=== PATIENT | female | born 1940 | race Caucasian/White ===

== ENCOUNTER → 2016-11-07 | Outpatient (CLI) | payer MEDICARE, OTHER ==
[~2016-11-07] MED LIST: AMLO10TA PO; ASP81TEC PO; ATOR10TA66 PO; ATRV10T PO; DOCU100T7 PO; DULO60CA6 PO; HCT25T PO; LEVO500T69 PO; LISI40TA PO; LOSA100T7 PO; MULT-856 PO; NEBI5TAB8 PO; OMEG1CAP PO; OMG1KC PO; POLY17PO23 PO; PRD10T PO; ROSU10TA12 PO; UBID30CA13 PO
== END ==
LOC: CARD 08:00
PROVIDERS: ATTEND Internal Medicine Cardiovascular Disease
DX: R00.1 Bradycardia, unspecified (principal); I25.10 Atherosclerotic heart disease of native coronary artery without angina pectoris; I65.23 Occlusion and stenosis of bilateral carotid arteries; R06.00 Dyspnea, unspecified
CPT/HCPCS: 78452; 93017

== ENCOUNTER → 2016-11-07 | Outpatient (CLI) | payer MEDICARE, OTHER ==
[~2016-11-07] MED LIST changes: +REGADENOSON 0.4 MG/5 ML SYR (LEXISCAN) IV ONE
[2016-11-07] MEDS: CATHETER FLUSH 10 ML SYR IV PRN ×2 (08:17→09:42)
[2016-11-07 09:42] VITALS: BP 124/78
== END ==
LOC: CARD 08:04
PROVIDERS: ATTEND Internal Medicine Cardiovascular Disease
DX: R00.1 Bradycardia, unspecified (principal); I25.10 Atherosclerotic heart disease of native coronary artery without angina pectoris; I65.23 Occlusion and stenosis of bilateral carotid arteries; R06.00 Dyspnea, unspecified
CPT/HCPCS: 93225; 93226

== ENCOUNTER → 2017-01-07 | Outpatient (CLI) | payer MEDICARE, OTHER ==
[~2017-01-07] MED LIST changes: -REGADENOSON 0.4 MG/5 ML SYR (LEXISCAN) IV ONE
--- NOTE | 2017-01-07 17:57 | Diagnostic Imaging Report ---
EXAM: LUMBAR SPINE - 2-3 VIEWS INDICATION: LOW BACK PAIN COMPARISON: Lumbar spine radiographs 11/04/2015. FINDINGS: There are five lumbar type vertebral bodies. Allowing for differences in technique, there has been no appreciable change in the compression deformity of the L3 vertebral body resulting in approximately 40% height loss. There is mild new superior endplate compression of the L4 vertebral body resulting in only approximately 10% height loss. Minimal retrolisthesis of L3 on L4 is stable. There are advanced degenerative endplate changes throughout the lower lumbar spine. Advanced lower lumbar facet arthropathy. Coarse arterial calcifications including abdominal aortic aneurysm measuring up to 4.8 cm. IMPRESSION: 1. New superior endplate compression deformity of L2 resulting in approximately 10% height loss. 2. Stable spondylotic changes and compression deformity of the L3 vertebral body. 3. Arterial calcifications including an abdominal aortic aneurysm measuring up to 4.8 cm. Dictated by: Dictated on workstation # [id number]
== END ==
LOC: RAD 16:52
DX: M48.56XA Collapsed vertebra, not elsewhere classified, lumbar region, initial encounter for fracture (principal); I71.4 Abdominal aortic aneurysm, without rupture; M47.816 Spondylosis without myelopathy or radiculopathy, lumbar region
CPT/HCPCS: 72100

== ENCOUNTER 2017-09-08 07:54 | Emergency (ER) | payer MEDICARE, OTHER ==
[~2017-09-08] VITALS: Ht 167.6 cm; Wt 98.4 kg
--- OUTSIDE RECORDS SUMMARY | 2017-09-08 08:01 | XMS REPORT | Continuity of Care Document ---
Author Author [facility] Organization [facility] Address Unknown Phone Unavailable Allergies Active Description Code Type Severity Reaction Onset Reported/Identified Relationship to Patient Clinical Status Yes Penicillins [id number] Drug Allergy Unknown N/A 11/03/2010 Medications There is no data. Problems Date Dx Coded Attending Type Code Diagnosis Diagnosed By 09/01/2012 Ot 724.2 LUMBAGO 09/01/2012 Ot V57.1 PHYSICAL THERAPY NEC 10/15/2012 Ot 724.2 LUMBAGO 10/15/2012 Ot V57.1 PHYSICAL THERAPY NEC 11/23/2014 Ot 786.50 11/25/2014 PAULIE TALAMANTES MD Ot 272.4 11/25/2014 PAULIE TALAMANTES MD Ot 401.9 11/25/2014 PAULIE TALAMANTES MD Ot 414.9 11/25/2014 PAULIE TALAMANTES MD Ot 433.10 11/26/2014 PAULIE TALAMANTES MD Ot 272.4 11/26/2014 PAULIE TALAMANTES MD Ot 401.9 11/26/2014 PAULIE TALAMANTES MD Ot 414.9 11/26/2014 PAULIE TALAMANTES MD Ot 433.10 12/01/2014 PAULIE TALAMANTES MD Ot 272.4 12/01/2014 PAULIE TALAMANTES MD Ot 401.9 12/01/2014 PAULIE TALAMANTES MD Ot 414.9 12/01/2014 PAULIE TALAMANTES MD Ot 433.10 12/01/2014 PAULIE TALAMANTES MD Ot 272.4 HYPERLIPIDEMIA NEC/NOS 12/01/2014 PAULIE TALAMANTES MD Ot 278.00 OBESITY, NOS 12/01/2014 PAULIE TALAMANTES MD Ot 300.4 DYSTHYMIC DISORDER 12/01/2014 PAULIE TALAMANTES MD Ot 401.9 HYPERTENSION NOS 12/01/2014 PAULIE TALAMANTES MD Ot 414.01 CORONARY ATHEROSCLEROSIS OF [place] CORON 12/01/2014 PAULIE TALAMANTES MD Ot 441.2 THORACIC AORTIC ANEURYSM 12/01/2014 VINITA JUAN, PAULIE Montes Ot 496 CHR AIRWAY OBSTRUCT NEC 12/01/2014 PAULIE TALAMANTES MD Ot 794.30 ABN CARDIOVASC STUDY NOS 12/01/2014 PAULIE TALAMANTES MD Ot V15.82 HISTORY OF TOBACCO USE 12/01/2014 PAULIE TALAMANTES MD Ot V58.69 OTH MED,LT,CURRENT USE 12/01/2014 PAULIE TALAMANTES MD Ot V85.41 BODY MASS INDEX 40.0-44.9, ADULT 12/15/2014 PAULIE TALAMANTES MD J Ot 272.4 12/15/2014 PAULIE TALAMANTES MD Ot 401.9 12/15/2014 PAULIE TALAMANTES MD J Ot 414.9 12/15/2014 PAULIE TALAMANTES MD J Ot 433.10 12/15/2014 PAULIE TALAMANTES MD J Ot 272.4 12/15/2014 PAULIE TALAMANTES MD J Ot 401.9 12/15/2014 VINITA JUAN, PAULIE J Ot 414.9 12/15/2014 VINITA JUAN, PAULIE J Ot 433.10 01/04/2015 VINITA JUAN, SHAHAR J Ot 272.4 01/04/2015 VINITA JUAN, SHAHAR J Ot 401.9 01/04/2015 VINITA JUAN, PAULIE J Ot 414.9 01/04/2015 VINITA JUAN, PAULIE J Ot 433.10 01/04/2015 VINITA JUAN, PAULIE J Ot 272.4 01/04/2015 VINITA JUAN, SHAHAR J Ot 401.9 01/04/2015 VINITA JUAN, SHAHAR J Ot 414.9 01/04/2015 VINITA JUAN, PAULIE J Ot 433.10 01/14/2015 Ot 786.50 01/14/2015 VINITA JUAN, PAULIE J Ot 272.4 01/14/2015 VINITA JUAN, SHAHAR J Ot 401.9 01/14/2015 VINITA JUAN, BASHAR J Ot 414.9 01/14/2015 VINITA JUAN, PAULIE J Ot 433.10 01/14/2015 VINITA JUAN, PAULIE J Ot 272.4 01/14/2015 VINITA JUAN, SHAHAR J Ot 401.9 01/14/2015 PAULIE TALAMANTES MD Ot 414.9 01/14/2015 PAULIE TALAMANTES MD Ot 433.10 02/18/2015 PAULIE TALAMANTES MD Ot V45.81 02/18/2015 PAULIE TALAMANTES MD Ot V57.89 03/14/2015 PAULIE TALAMANTES MD Ot V45.81 03/14/2015 PAULIE TALAMANTES MD Ot V57.89 03/16/2015 PAULIE TALAMANTES MD Ot V45.81 03/16/2015 PAULIE TALAMANTES MD Ot V57.89 03/23/2015 PAULIE TALAMANTES MD Ot V45.81 AORTOCORONARY BYPASS 03/23/2015 PAULIE TALAMANTES MD Ot V57.89 REHABILITATION PROC NEC 2015 PAULIE TALAMANTES MD Ot V45.81 2015 PAULIE TALAMANTES MD Ot V57.89 03/29/2015 PAULIE TALAMANTES MD Ot V45.81 03/29/2015 PAULIE TALAMANTES MD Ot V57.89 03/29/2015 PAULIE TALAMANTES MD Ot V45.81 03/29/2015 PAULIE TALAMANTES MD Ot V57.89 03/29/2015 PAULIE TALAMANTES MD Ot V45.81 03/29/2015 PAULIE TALAMANTES MD Ot V57.89 04/14/2015 PAULIE TALAMANTES MD Ot V45.81 04/14/2015 PAULIE TALAMANTES MD Ot V57.89 04/14/2015 PAULIE TALAMANTES MD Ot V45.81 04/14/2015 PAULIE TALAMANTES MD Ot V57.89 04/20/2015 PAULIE TALAMANTES MD Ot Z48.812 ENCNTR FOR SURGICAL AFTCR FOLLOWING SURG 04/20/2015 PAULIE TALAMANTES MD Ot Z95.1 PRESENCE OF AORTOCORONARY BYPASS GRAFT 04/23/2015 PAULIE TALAMANTES MD Ot 272.4 04/23/2015 PAULIE TALAMANTES MD Ot 401.9 04/23/2015 PAULIE TALAMANTES MD Ot 414.9 04/23/2015 PAULIE TALAMANTES MD Ot 433.10 04/23/2015 PAULIE TALAMANTES MD Ot 272.4 04/23/2015 PAULIE TALAMANTES MD Ot 401.9 04/23/2015 PAULIE TALAMANTES MD Ot 414.9 04/23/2015 PAULIE TALAMANTES MD Ot 433.10 04/24/2015 ELIECER MARIE MD Ot E78.5 HYPERLIPIDEMIA, UNSPECIFIED 04/24/2015 ELIECER MARIE MD Ot F32.9 MAJOR DEPRESSIVE DISORDER, SINGLE EPISOD 04/24/2015 ELIECER MARIE MD Ot F41.9 ANXIETY DISORDER, UNSPECIFIED 04/24/2015 ELIECER MARIE MD Ot G44.40 DRUG-INDUCED HEADACHE, NEC, NOT INTRACTA 04/24/2015 ELIECER MARIE MD Ot I10 ESSENTIAL (PRIMARY) HYPERTENSION 04/24/2015 ELIECER MARIE MD Ot I25.10 ATHSCL HEART DISEASE OF [place] CORONARY 04/24/2015 ELIECER MARIE MD Ot I71.2 THORACIC AORTIC ANEURYSM, WITHOUT RUPTUR 04/24/2015 ELIECER MARIE MD Ot J44.9 CHRONIC OBSTRUCTIVE PULMONARY DISEASE, U 04/24/2015 ELIECER MARIE MD Ot R07.89 OTHER CHEST PAIN 04/24/2015 ELIECER MARIE MD Ot T46.3X5A ADVERSE EFFECT OF CORONARY VASODILATORS, 05/09/2015 KOMAL KIRBY MD Ot F17.211 NICOTINE DEPENDENCE, CIGARETTES, IN [place] 05/09/2015 KOMAL KIRBY MD Ot I10 ESSENTIAL (PRIMARY) HYPERTENSION 05/09/2015 KOMAL KIRBY MD Ot I71.9 AORTIC ANEURYSM OF UNSPECIFIED SITE, WIT 10/27/2015 PAULIE TALAMANTES MD Ot 272.4 HYPERLIPIDEMIA NEC/NOS 10/27/2015 PAULIE TALAMANTES MD Ot 401.9 HYPERTENSION NOS 10/27/2015 PAULIE TALAMANTES MD Ot 414.9 CHR ISCHEMIC HRT DIS NOS 10/27/2015 PAULIE TALAMANTES MD Ot 433.10 CAROTID ARTERY OCCLUSION W O CEREBRAL IN 10/27/2015 PAULIE TALAMANTES MD Ot 272.4 HYPERLIPIDEMIA NEC/NOS 10/27/2015 PAULIE TALAMANTES MD Ot 401.9 HYPERTENSION NOS 10/27/2015 VINITA MD, BASHAR J Ot 414.9 CHR ISCHEMIC HRT DIS NOS 10/27/2015 VINITA JUAN, PAULIE Montes Ot 433.10 CAROTID ARTERY OCCLUSION W O CEREBRAL IN 10/27/2015 ELIECER MARIE MD Ot R07.81 PLEURODYNIA 11/07/2015 CYNTHIA JUAN, ELIECER Garvey Ot M47.814 SPONDYLOSIS W/O MYELOPATHY OR RADICULOPA 11/07/2015 ELIECER MARIE MD Ot M54.5 LOW BACK PAIN 11/10/2015 ELIECER MARIE MD Ot M81.0 AGE-RELATED OSTEOPOROSIS W/O CURRENT PAT 11/11/2015 ELIECER MARIE MD Ot M85.89 OTH DISRD OF BONE DENSITY AND STRUCTURE, 11/11/2015 ELIECER MARIE MD Ot M85.89 OTH DISRD OF BONE DENSITY AND STRUCTURE, 11/17/2015 ELIECER MARIE MD Ot R07.81 PLEURODYNIA 11/29/2015 ELIECER MARIE MD Ot M47.814 SPONDYLOSIS W/O MYELOPATHY OR RADICULOPA 11/29/2015 ELIECER MARIE MD Ot M54.5 LOW BACK PAIN 12/02/2015 ELIECER MARIE MD Ot M85.89 OTH DISRD OF BONE DENSITY AND STRUCTURE, 12/16/2015 ELIECER MARIE MD Ot M47.814 SPONDYLOSIS W/O MYELOPATHY OR RADICULOPA 12/16/2015 ELIECER MARIE MD Ot M54.5 LOW BACK PAIN 12/20/2015 ELIECER MARIE MD Ot R07.81 PLEURODYNIA 05/25/2016 Ot V76.12 OTH SCREEN MAMMO-MALIGN NEOPLASM OF [place] 05/25/2016 Ot 733.00 OSTEOPOROSIS NOS 05/25/2016 Ot 396.3 MITRAL/ AORTIC AVE INSUFF 05/25/2016 Ot 397.0 TRICUSPID VALVE DISEASE 05/25/2016 Ot 401.9 HYPERTENSION NOS 05/25/2016 Ot 414.00 CORON ATHEROSCLER NOS TYPE VESSEL, NATIV 05/25/2016 Ot 429.3 CARDIOMEGALY 05/25/2016 Ot 733.90 BONE CARTILAGE DIS NOS 05/25/2016 Ot 722.51 THORACIC DISC DEGEN 05/25/2016 Ot 722.52 LUMB/ LUMBOSAC DISC DEGEN 05/25/2016 Ot 737.30 IDIOPATHIC SCOLIOSIS 05/25/2016 Ot 805.4 FX LUMBAR VERTEBRA-CLOSE 05/25/2016 Ot E000.8 OTHER EXTERNAL CAUSE STATUS 05/25/2016 Ot E849.0 ACCIDENT IN HOME 05/25/2016 Ot E888.9 FALL NOS 05/25/2016 Ot 721.3 LUMBOSACRAL SPONDYLOSIS 05/25/2016 Ot 428.0 CONGESTIVE HEART FAILURE NOS 05/25/2016 Ot 211.3 BENIGN NEOPLASM LG BOWEL 05/25/2016 Ot 272.0 PURE HYPERCHOLESTEROLEM 05/25/2016 Ot 401.9 HYPERTENSION NOS 05/25/2016 Ot 562.10 DIVERTICULOSIS COLON (W/O MENT OF HEMORR 05/25/2016 Ot V10.3 HX OF BREAST MALIGNANCY 05/25/2016 Ot V10.42 HX-UTERUS MALIGNANCY NEC 05/25/2016 Ot V58.66 LONG-TERM ( CURRENT) USE OF ASPIRIN 05/25/2016 Ot V58.69 OTH MED,LT, CURRENT USE 05/25/2016 Ot V72.84 EXAM PRE- OPERATIVE NOS 05/25/2016 Ot V76.12 OTH SCREEN MAMMO-MALIGN NEOPLASM OF [place] 05/25/2016 Ot 424.1 AORTIC VALVE DISORDER 05/25/2016 Ot 429.3 CARDIOMEGALY 05/25/2016 CYNTHIA JUAN, ELIECER Garvey Ot V76.12 OTH SCREEN MAMMO-MALIGN NEOPLASM OF [place] 05/25/2016 CYNTHIA JAUN, ELIECER Garvey Ot 726.73 CALCANEAL SPUR 05/25/2016 CYNTHIA JUAN, ELIECER Garvey Ot 715.31 LOC OSTEOARTH NOS-SHLDER 05/25/2016 ANA JUAN, LUDMILA Valiente Ot 727.61 ROTATOR CUFF RUPTURE 05/25/2016 CYNTHIA JUAN, ELIECER Garvey Ot V76.12 OTH SCREEN MAMMO-MALIGN NEOPLASM OF [place] 05/25/2016 ROSARIO DPM, VIVI Q Ot 726.71 ACHILLES TENDINITIS 05/25/2016 ROSARIO DPM, VIVI Q Ot 845.09 SPRAIN OF ANKLE NEC 05/25/2016 ROSARIO DPM, VIVI Q Ot E928.9 ACCIDENT NOS 05/25/2016 PAULIE TALAMANTES MD Ot 272.4 HYPERLIPIDEMIA NEC/NOS 05/25/2016 PAULIE TALAMANTES MD Ot 401.9 HYPERTENSION NOS 05/25/2016 PAULIE TALAMANTES MD Ot 414.9 CHR ISCHEMIC HRT DIS NOS 05/25/2016 PAULIE TALAMANTES MD Ot 433.10 CAROTID ARTERY OCCLUSION W O CEREBRAL IN 05/25/2016 PAULIE TALAMANTES MD Ot 272.4 HYPERLIPIDEMIA NEC/NOS 05/25/2016 PAULIE TALAMANTES MD Ot 401.9 HYPERTENSION NOS 05/25/2016 PAULIE TALAMANTES MD Ot 414.9 CHR ISCHEMIC HRT DIS NOS 05/25/2016 PAULIE TALAMANTES MD Ot 433.10 CAROTID ARTERY OCCLUSION W O CEREBRAL IN 05/25/2016 ELIECER MARIE MD Ot R07.81 PLEURODYNIA 05/25/2016 ELIECER MARIE MD Ot M47.814 SPONDYLOSIS W/O MYELOPATHY OR RADICULOPA 05/25/2016 ELIECER MARIE MD Ot M54.5 LOW BACK PAIN 05/25/2016 ELIECER MARIE MD Ot M85.89 OTH DISRD OF BONE DENSITY AND STRUCTURE, 05/28/2016 PAULIE TALAMANTES MD Ot I10 ESSENTIAL (PRIMARY) HYPERTENSION 05/28/2016 PAULIE TALAMANTES MD Ot I25.10 ATHSCL HEART DISEASE OF [place] CORONARY 05/28/2016 PAULIE TALAMANTES MD Ot I71.4 ABDOMINAL AORTIC ANEURYSM, WITHOUT RUPTU 05/28/2016 PAULIE TALAMANTES MD Ot R00.1 BRADYCARDIA, UNSPECIFIED 05/29/2016 PAULIE TALAMANTES MD Ot I10 ESSENTIAL (PRIMARY) HYPERTENSION 05/29/2016 PAULIE TALAMANTES MD Ot I25.10 ATHSCL HEART DISEASE OF [place] CORONARY 05/29/2016 PAULIE TALAMANTES MD Ot I71.4 ABDOMINAL AORTIC ANEURYSM, WITHOUT RUPTU 05/29/2016 PAULIE TALAMANTES MD Ot R00.1 BRADYCARDIA, UNSPECIFIED 06/06/2016 PAULIE TALAMANTES MD Ot R55 SYNCOPE AND COLLAPSE 06/07/2016 PAULIE TALAMANTES MD Ot E78.2 MIXED HYPERLIPIDEMIA 06/07/2016 PAULIE TALAMANTES MD Ot I10 ESSENTIAL (PRIMARY) HYPERTENSION 06/07/2016 PAULIE TALAMANTES MD Ot I25.10 ATHSCL HEART DISEASE OF [place] CORONARY 06/07/2016 PAULIE TALAMANTES MD Ot R06.00 DYSPNEA, UNSPECIFIED 06/07/2016 PAULIE TALAMANTES MD Ot R55 SYNCOPE AND COLLAPSE 06/07/2016 PAULIE TALAMANTES MD Ot E78.2 MIXED HYPERLIPIDEMIA 06/07/2016 PAULIE TALAMANTES MD J Ot I10 ESSENTIAL (PRIMARY) HYPERTENSION 06/07/2016 PAULIE TALAMANTES MD Ot I25.10 ATHSCL HEART DISEASE OF [place] CORONARY 06/07/2016 PAULIE TALAMANTES MD Ot R06.00 DYSPNEA, UNSPECIFIED 06/07/2016 PAULIE TALAMANTES MD J Ot R55 SYNCOPE AND COLLAPSE 06/21/2016 PAULIE TAALMANTES MD J Ot I10 ESSENTIAL (PRIMARY) HYPERTENSION 06/21/2016 PAULIE TALAMANTES MD Ot I25.10 ATHSCL HEART DISEASE OF [place] CORONARY 06/21/2016 PAULIE TALAMANTES MD Ot I71.4 ABDOMINAL AORTIC ANEURYSM, WITHOUT RUPTU 06/21/2016 PAULIE TALAMANTES MD Ot R00.1 BRADYCARDIA, UNSPECIFIED 07/02/2016 PAULIE TALAMANTES MD Ot E78.2 MIXED HYPERLIPIDEMIA 07/02/2016 PAULIE TALAMANTES MD J Ot I10 ESSENTIAL (PRIMARY) HYPERTENSION 07/02/2016 PAULIE TALAMANTES MD Ot I25.10 ATHSCL HEART DISEASE OF [place] CORONARY 07/02/2016 PAULIE TALAMANTES MD Ot R06.00 DYSPNEA, UNSPECIFIED 07/02/2016 PAULIE TALAMANTES MD Ot R55 SYNCOPE AND COLLAPSE 07/04/2016 PAULIE TALAMANTES MD J Ot I10 ESSENTIAL (PRIMARY) HYPERTENSION 07/04/2016 PAULIE TALAMANTES MD Ot I25.10 ATHSCL HEART DISEASE OF [place] CORONARY 07/04/2016 PAULIE TALAMANTES MD Ot I71.4 ABDOMINAL AORTIC ANEURYSM, WITHOUT RUPTU 07/04/2016 PAULIE TALAMANTES MD Ot R00.1 BRADYCARDIA, UNSPECIFIED 07/11/2016 PAULIE TALAMANTES MD Ot E78.2 MIXED HYPERLIPIDEMIA 07/11/2016 PAULIE TALAMANTES MD J Ot I10 ESSENTIAL (PRIMARY) HYPERTENSION 07/11/2016 PAULIE TALAMANTES MD Ot I25.10 ATHSCL HEART DISEASE OF [place] CORONARY 07/11/2016 PAULIE TALAMANTES MD Ot R06.00 DYSPNEA, UNSPECIFIED 07/11/2016 PAULIE TALAMANTES MD Ot R55 SYNCOPE AND COLLAPSE 11/07/2016 PAULIE TALAMANTES MD Ot R00.1 BRADYCARDIA, UNSPECIFIED 11/07/2016 PAULIE TALAMANTES MD Ot R00.1 BRADYCARDIA, UNSPECIFIED 11/07/2016 PAULIE TALAMANTES MD Ot R00.1 BRADYCARDIA, UNSPECIFIED 11/29/2016 PAULIE TALAMANTES MD Ot I25.10 ATHSCL HEART DISEASE OF [place] CORONARY 11/29/2016 PAULIE TALAMANTES MD Ot I65.23 OCCLUSION AND STENOSIS OF [place] 11/29/2016 PAULIE TALAMANTES MD Ot R00.1 BRADYCARDIA, UNSPECIFIED 11/29/2016 PAULIE TALAMANTES MD Ot R06.00 DYSPNEA, UNSPECIFIED 11/29/2016 PAULIE TALAMANTES MD Ot I25.10 ATHSCL HEART DISEASE OF [place] CORONARY 11/29/2016 PAULIE TALAMANTES MD Ot I65.23 OCCLUSION AND STENOSIS OF [place] 11/29/2016 PAULIE TALAMANTES MD Ot R00.1 BRADYCARDIA, UNSPECIFIED 11/29/2016 PAULIE TALAMANTES MD Ot R06.00 DYSPNEA, UNSPECIFIED 01/13/2017 ELIECER MARIE MD Ot I71.4 ABDOMINAL AORTIC ANEURYSM, WITHOUT RUPTU 01/13/2017 ELIECER MARIE MD Ot M47.816 SPONDYLOSIS W/O MYELOPATHY OR RADICULOPA 01/13/2017 ELIECER MARIE MD Ot M48.56XA COLLAPSED VERTEBRA, NEC, LUMBAR REGION, 01/30/2017 ELIECER MARIE MD Ot I71.4 ABDOMINAL AORTIC ANEURYSM, WITHOUT RUPTU 01/30/2017 ELIECER MARIE MD Ot M47.816 SPONDYLOSIS W/O MYELOPATHY OR RADICULOPA 01/30/2017 ELIECER MARIE MD Ot M48.56XA COLLAPSED VERTEBRA, NEC, LUMBAR REGION, 02/18/2017 ELIECER MARIE MD Ot I71.4 ABDOMINAL AORTIC ANEURYSM, WITHOUT RUPTU 02/18/2017 ELIECER MARIE MD Ot M47.816 SPONDYLOSIS W/O MYELOPATHY OR RADICULOPA 02/18/2017 ELIECER MARIE MD Ot M48.56XA COLLAPSED VERTEBRA, NEC, LUMBAR REGION, Procedures There is no data. Results There is no data. Encounters ACCT No. Visit Date/Time Discharge Status Pt. Type Provider Facility Loc./Unit Complaint [id number] 01/07/2017 16:52:00 01/07/2017 23:59:59 CLS Outpatient ELIECER MARIE MD [facility] RAD M54.5 [id number] 11/07/2016 08:04:00 11/07/2016 23:59:59 CLS Outpatient PAULIE TALAMANTES MD [facility] CARD I25.10 CAD [id number] 11/07/2016 08:00:00 11/07/2016 23:59:59 CLS Outpatient PAULIE TALAMANTES MD [facility] CARD BRADYCARDIA R00.1 [id number] 10/17/2016 09:22:00 10/17/2016 23:59:59 CLS Preadmit ELIECER MARIE MD [facility] REHAB ABNORMAL GAIT [id number] 06/06/2016 12:10:00 06/06/2016 23:59:59 CLS Outpatient PAULIE TALAMANTES MD [facility] CARD CAD [id number] 05/25/2016 12:39:00 05/25/2016 23:59:59 CLS Outpatient PAULIE TALAMANTES MD [facility] CARD AAA,BRADYCARDIA,CAD,HTN [id number] 11/10/2015 10:10:00 11/10/2015 23:59:59 CLS Outpatient ELIECER MARIE MD [facility] RAD OSTEOPOROSIS [id number] 11/04/2015 09:21:00 11/04/2015 23:59:59 CLS Outpatient ELIECER MARIE MD [facility] RAD LOW BACK PAIN [id number] 10/27/2015 10:13:00 10/27/2015 23:59:59 CLS Outpatient ELIECER MARIE MD [facility] RAD RIB PAIN,PLEURODYNIA [id number] 05/09/2015 16:13:00 05/09/2015 20:12:00 DIS Emergency KOMAL KIRBY MD [facility] ER CHEST PAIN [id number] 04/23/2015 06:50:00 04/24/2015 16:00:00 DIS Inpatient ELIECER MARIE MD [facility] ICU CHEST PAIN [id number] 04/20/2015 11:47:00 04/20/2015 12:28:00 DIS Outpatient PAULIE TALAMANTES MD [facility] CR STATUS POST ACB [id number] 03/23/2015 11:42:00 03/23/2015 00:01:00 DIS Outpatient PAULIE TALAMANTES MD [facility] CR STATUS POST ACB [id number] 12/01/2014 10:50:00 12/01/2014 14:40:00 DIS Outpatient PAULIE TALAMANTES MD [facility] CATH ABNORMAL STRESS, OBESITY ,CAD,AAA [id number] 11/24/2014 07:01:00 11/24/2014 23:59:59 CLS Outpatient PAULIE TALAMANTES MD [facility] CARD CAD CAROTID ARTERY STENOSIS HTN HLE [id number] 11/23/2014 08:30:00 11/23/2014 23:59:59 CLS Outpatient PAULIE TALAMANTES MD [facility] CARD CAD CAROTID ARTERY STENOSIS HTN HLE [id number] 12/31/2013 09:09:00 12/31/2013 23:59:59 CLS Outpatient VIVI PONCE DPM Q [facility] RAD RT HEEL/ANKLE ACHILLIES TENDONITIS [id number] 12/08/2013 07:00:00 12/08/2013 23:59:59 CLS Outpatient ELIECER MARIE MD [facility] RAD SCREENING [id number] 07/23/2013 08:38:00 07/23/2013 23:59:59 CLS Outpatient LUDMIAL PEREZ MD [facility] RAD RCT [id number] 07/09/2013 13:16:00 07/09/2013 23:59:59 CLS Outpatient ELIECER MARIE MD [facility] RAD SHOULDER SYNDROME [id number] 04/15/2013 11:13:00 04/15/2013 23:59:59 CLS Outpatient ELIECER MARIE MD [facility] RAD ACHILES BURSITIS [id number] 12/09/2012 07:10:00 12/09/2012 23:59:59 CLS Outpatient ELIECER MARIE MD [facility] RAD SCREENING [id number] 11/23/2014 08:31:00 Document Registration [id number] 10/15/2012 07:57:00 Document Registration [id number] 09/24/2012 07:36:00 Document Registration [id number] 08/26/2012 08:45:00 Document Registration [id number] 12/10/2011 06:26:00 Document Registration [id number] 12/06/2011 06:56:00 Document Registration [id number] 12/05/2011 07:42:00 Document Registration [id number] 05/09/2011 08:57:00 Document Registration [id number] 05/01/2011 15:20:00 Document Registration [id number] 04/30/2011 14:32:00 Document Registration [id number] 03/23/2011 09:15:00 Document Registration [id number] 03/01/2011 08:59:00 Document Registration [id number] 12/21/2010 12:33:00 Document Registration [id number] 12/04/2010 07:12:00 Document Registration
--- NOTE | 2017-09-08 08:15 | ED Back Pain ---
General Chief Complaint: Back Problems Stated Complaint: LOWER BACK PAIN Source of Information: Patient Exam Limitations: No Limitations History of Present Illness Date Seen by Provider: Sep 08, 2017 Time Seen by Provider: 08:05 Initial Comments Patient presents to the ER by private conveyance with a chief complaint that for the past for 5 days she's had progressively worsening pain seems to radiate from her gluteal down the back of her leg to the calf of her left leg as well as her anterior lower leg. Says the pain is not worse with exercise walking or standing but is made worse by laying down. She's had a hard time sleeping and so she used some Tylenol extra strength but that did not help much the last couple days. Yesterday it was so severe she went to urgent care and they put her on tizanidine which she tech and it helped her sleep a little better but didn't do anything for her pain. She thinks she's had sciatica pain in the past and this is not similar. She does have a history of open-heart surgery but no history of stents in the legs. She says some of her family members were concerned she might have a clot in her leg and that is something she wanted looked into today. She is having no chest pain, shortness of breath, fever, chills, nausea, vomiting. She has no weakness or loss of control of her bowels or bladder. No saddle anesthesia. The patient states she has had breast cancer and ovarian cancer but no chemotherapy or radiation. She is in remission from both. She says she's had imaging of her back however it was many many years ago and she doesn't remember the results of that. She came off of sentinel patch about 6 months ago that she was using for pain secondary to all of her heart surgeries. She had a quadruple bypass, aneurysm removed and a heart valve. She is not on blood thinners. She does take aspirin. Allergies and Home Medications Allergies Coded Allergies: Penicillins (Verified Allergy, Unknown, 11/03/10) Home Medications Aspirin 81 Mg Tabec, 81 MG PO DAILY, (Reported) Atorvastatin Calcium 10 Mg Tablet, 20 MG PO DAILY, (Reported) Docusate Sodium 100 Mg Tablet, 100 MG PO DAILY, (Reported) Duloxetine Hcl 60 Mg Capsule.dr, 60 MG PO DAILY, (Reported) Multivits W-Fe,Other Min/Lut 1 Each Tablet, 1 EACH PO DAILY, (Reported) Nebivolol Hcl 5 Mg Tablet, 0.5 EACH PO DAILY, (Reported) [place]-3 Acid Ethyl Esters 1 Gm Capsule, 2 CAP PO BID, (Reported) Polyethylene Glycol 17 Gm Pack, 17 GM PO DAILY, (Reported) Patient Home Medication List Home Medication List Reviewed: Yes Constitutional: No chills, No diaphoresis, No fever, No malaise, No weight gain , No weight loss EENTM: No ear discharge, No ear pain Respiratory: No cough, No short of breath Cardiovascular: No chest pain, Hx of Intervention, No palpitations, vascular heart diseas Gastrointestinal: No abdominal pain, No constipation, No diarrhea, No nausea Genitourinary: No discharge, No dysuria : No Musculoskeletal: see HPI, back pain, No joint pain Skin: No pruritus, No rash Psychiatric/Neurological: Denies Headache, Denies Numbness, Denies Paresthesia Past Smlynpv-Upmzuh-Eadrsd Hx Patient Social History Alcohol Use: Occasionally Uses Recreational Drug Use: No Smoking Status: Former Smoker Type Used: Cigarettes (quit 16 years ago) Recent Foreign Travel: No Contact w/Someone Who Travel: No Immunizations Up To Date Tetanus Booster (TDap): Unknown Date of Pneumonia Vaccine: Jun 24, 2009 Date of Influenza Vaccine: Feb 22, 2015 Seasonal Allergies Seasonal Allergies: Yes Surgeries Surgeries: Adenoidectomy, Appendectomy, Breast, Cardiac, CABG, Eye Surgery, Gallbladder, Hysterectomy, Oophorectomy, Tonsillectomy, Valve Replacement, Vascular Surgery Respiratory Currently Using CPAP: No Currently Using BIPAP: No Cardiovascular Cardiac Disorders: Aneurysm, Coronary Artery Disease, High Cholesterol, Hypertension, Valvular Heart Disease Reproductive System Hx Reproductive Disorders: Yes Gastrointestinal Gastrointestinal Disorders: Chronic Constipation Musculoskeletal Musculoskeletal Disorders: Arthritis HEENT HEENT Disorders: Cataract Hearing Impairment: Hearing Aide Right Cancer Cancer: Breast, Uterine Psychosocial Behavioral Health Disorders: Anxiety, Depression Blood Transfusions Adverse Reaction to a Blood Tr: No Family Medical History Family Medial History: Patient reports no known family medical history. Physical Exam Vital Signs Vital Signs - First Documented 09/08/17 08:08 Temp 97.5 Pulse 70 Resp 16 B/P (MAP) 130/77 (94) Capillary Refill : General Appearance: No Apparent Distress, WD/WN HEENT: PERRL/EOMI, Pharynx Normal Neck: Full Range of Motion, Non Tender, Supple Cardiovascular: Regular Rate, Rhythm, No Edema, Normal Peripheral Pulses Respiratory: Chest Non Tender, Lungs Clear, Normal Breath Sounds, No Accessory Muscle Use, No Respiratory Distress Peripheral Pulses: 2+ Dorsalis Pedis (R), 2+ Left Dors-Pedis (L), 2+ Radial Pulses (R), 2+ Radial Pulses (L) Gastrointestinal: Normal Bowel Sounds, Non Tender, Soft Back: Normal Inspection, Vertebral Tenderness (Lumbar and left of midline Lumbar at L4-S1) Extremity: Normal Capillary Refill, Normal Range of Motion, Non Tender, Calf Tenderness (mild left without knots. ) Neurologic/Psychiatric: Alert, Oriented x3, No Motor/Sensory Deficits, Normal Mood/Affect Skin: Normal Color, Warm/Dry Additional Procedures : Progress Risk benefits alternatives were discussed and the patient consented to the procedure. Her skin was cleaned with Betadine and alcohol and then using a 1-1/ 2 inch 25-gauge needle a preparation of 1% lidocaine 4 mL, 0.5% Marcaine with epinephrine 4 mL and 10 mg of dexamethasone, 1 mL was injected to the left L5- S1 facet joint. Procedure was tolerated well by the patient and a Band-Aid was placed over the injection site. No blood was aspirated after placing the needle. Progress/Results/Core Measures Results/Orders My Orders Orders - BENJA DUGAN Ct Lumbar Spine Wo (09/08/17 08:24) Dexamethasone Injection (Decadron Inject (09/08/17 09:45) Bupivacaine 0.5% W/Epi Inj (Sensorcaine (09/08/17 09:45) Lidocaine 1% Injection (Xylocaine 1% Inj (09/08/17 09:45) Vital Signs/I&O Vital Sign - Last 12Hours 09/08/17 08:08 Temp 97.5 Pulse 70 Resp 16 B/P (MAP) 130/77 (94) Progress Note : Time: 08:30 Progress Note Well score pretest probability for DVT is negative to points. Patient has no risk factors presently. Her pain is easily reproduced on direct palpation over the L5-S1 facet joint just left of midline on the lumbar spine. This re-creates her sensation of pain down her leg. Her calves although being a little tender on the left side are symmetric, nonerythematous, nonswollen and of similar circumference. Straight leg raise is positive for causing the same pain. Because of her age and history of cancer and the fact that her pain travels down past her knees and she has not had any recent workup or imaging of her back you feel it would be reasonable to image her lumbar spine. She has no evidence of claudication or worsening on walking she says in fact it gets better when she moves around worse when she lays still. Osteoarthritis driven diagnosis is most likely differential. She has been given muscle relaxants which helped with her insomnia but not with her pain. We have discussed steroid use and she does not have diabetes and her blood pressures under pretty good control this would be reasonable. Unfortunately NSAIDs with her history of quadruple bypass of, not the best option. She's had an issue with getting off of fentanyl and the last 6 months so we will try and avoid opiates. Diagnostic Imaging Diagonstic Imaging: CT Plain Films/CT/US/NM/MRI: other (lumbar spine without contrast) Comments NAME: IVETTE OLSEN MED REC#: [id number] PT STATUS: REG ER : 1940 PHYSICIAN: BENJA DUGAN MD ADMIT DATE: 09/08/17/ER Draft Date of Exam:09/08/17 CT LUMBAR SPINE WO PROCEDURE: CT lumbar spine without contrast. TECHNIQUE: Multiple contiguous axial images were obtained through the lumbar spine without the use of intravenous contrast. Sagittal and coronal reformations were then performed. INDICATION: Chronic back pain, now with pain in the left gluteal region radiating down the left leg with symptoms of 5 days duration. The study is correlated with plain films of the lumbar spine dated 01/07/2017. FINDINGS: A superior and endplate compression fracture of L3 showed no progressive stature loss. The endplate sclerotic and well marginated mild retropulsion of the posterior cortex are unchanged in magnitude from prior. An L2 superior endplate Schmorl's node concavity is unchanged from prior. Remaining statures unremarkable and also stable. There are degenerative changes narrowing the disc spaces. There is endplate sclerosis, osteophytes, hypertrophic facet arthrosis and degenerative vacuum gas phenomena at multiple levels as chronic findings. The constellation of findings at L2-L3 result in a moderate degree of spinal canal stenosis. At L3-L4 there is moderate canal stenosis. At L4-5 there is moderate to severe canal stenosis. At the L5-S1 level, there is moderate canal stenosis. Moderate degrees of mixed soft tissue and osseous foraminal stenosis bilaterally throughout the lumbar spine present as well. The sacrum appeared nonacute. No paravertebral mass, hemorrhage or fluid collection. There is diffuse abnormal dilatation of the abdominal aorta. The upper abdominal aorta above the celiac measured 4.6 cm. Just below the level of the renal arteries, the peripherally calcified aorta is 4 cm. No periaortic hemorrhage or fluid collection is appreciable. IMPRESSION: Stable chronic L3 compression fracture, stable. L2 endplate Schmorl's node deformity. Advanced orr lumbar spondylosis and facet arthrosis with multilevel spinal canal and foraminal stenoses, chronic. Aortic atherosclerosis and diffuse aneurysmal dilatation without appreciable rupture. No acute spinal abnormality. Dictated on workstation # [id number] Dict: 09/08/17 0856 Trans: 09/08/17 0936 [id number] Interpreted by: KIESHA COOK Electronically signed by: Reviewed: Reviewed by Me Departure Impression Impression: Primary Impression: Lumbar radiculopathy Disposition: HOME, SELF-CARE Condition: Stable Departure-Patient Inst. Decision time for Depature: 10:14 Referrals: ELIECER MARIE MD (PCP/Family) Primary Care Physician Patient Instructions: Low Back Pain (DC) Add. Discharge Instructions: The shot with your back should start working shortly and give you up to 6-8 hours of pain relief. The steroid should start bringing down the swelling and inflammation in your back that is causing your pain in about 12-24 hours and you should see some good improvement by the third or fourth day. If however by the end of the week you're not feeling that you have improved then you should follow up with your primary care physician and look into physical therapy or other management by pain specialist. If you lose control your bowels and bladder , have numbness or start having falls because of weakness you should return to a physician sooner. You can use Tylenol 1000 mg every 8 hours as needed for the pain you can also use icy hot, Biofreeze or other similar creams as well as obtain a back brace and use it on the days that it helps with her foster. You may use the pain medicine in the tizanidine muscle relaxant that were prescribed from urgent care as needed. All discharge instructions reviewed with patient and/or family. Voiced understanding. Copy Copies To 1: ELIECER MARIE MD, TITUS J Sep 08, 2017 08:15
--- NOTE | 2017-09-08 09:36 | Diagnostic Imaging Report ---
PROCEDURE: CT lumbar spine without contrast. TECHNIQUE: Multiple contiguous axial images were obtained through the lumbar spine without the use of intravenous contrast. Sagittal and coronal reformations were then performed. INDICATION: Chronic back pain, now with pain in the left gluteal region radiating down the left leg with symptoms of 5 days duration. The study is correlated with plain films of the lumbar spine dated 01/07/2017. FINDINGS: A superior and endplate compression fracture of L3 showed no progressive stature loss. The endplate sclerotic and well marginated mild retropulsion of the posterior cortex are unchanged in magnitude from prior. An L2 superior endplate Schmorl's node concavity is unchanged from prior. Remaining statures unremarkable and also stable. There are degenerative changes narrowing the disc spaces. There is endplate sclerosis, osteophytes, hypertrophic facet arthrosis and degenerative vacuum gas phenomena at multiple levels as chronic findings. The constellation of findings at L2-L3 result in a moderate degree of spinal canal stenosis. At L3-L4 there is moderate canal stenosis. At L4-5 there is moderate to severe canal stenosis. At the L5-S1 level, there is moderate canal stenosis. Moderate degrees of mixed soft tissue and osseous foraminal stenosis bilaterally throughout the lumbar spine present as well. The sacrum appeared nonacute. No paravertebral mass, hemorrhage or fluid collection. There is diffuse abnormal dilatation of the abdominal aorta. The upper abdominal aorta above the celiac measured 4.6 cm. Just below the level of the renal arteries, the peripherally calcified aorta is 4 cm. No periaortic hemorrhage or fluid collection is appreciable. IMPRESSION: Stable chronic L3 compression fracture, stable. L2 endplate Schmorl's node deformity. Advanced orr lumbar spondylosis and facet arthrosis with multilevel spinal canal and foraminal stenoses, chronic. Aortic atherosclerosis and diffuse aneurysmal dilatation without appreciable rupture. No acute spinal abnormality. Dictated by: Dictated on workstation # [id number]
[2017-09-08] MEDS ORDERED: BUP/EPI 0.5% 1:200,000 (SENSORCAINE) 30 ML VIAL INJ ONE (09:45)
[2017-09-08] MEDS ORDERED: DEXAMETHASONE 10 MG/ML (DECADRON) 1 ML VIAL IM ONE (09:45)
[2017-09-08] MEDS ORDERED: LIDOCAINE 1% INJ 20 ML (XYLOCAINE) VIAL INJ ONE (09:45)
[2017-09-08] MEDS ORDERED: LIDOCAINE 1% INJ 50 ML (XYLOCAINE) VIAL ONE (09:50)
[2017-09-08 10:22] VITALS: BP 130/77
== END 2017-09-08 10:22 | disposition home or self-care (01) ==
LOC: EDUNIT# 07:54 → ER 07:55
DX: M54.16 Radiculopathy, lumbar region (principal); C50.819 Malignant neoplasm of overlapping sites of unspecified female breast; C56.9 Malignant neoplasm of unspecified ovary; F41.9 Anxiety disorder, unspecified; F32.9 Major depressive disorder, single episode, unspecified; I25.10 Atherosclerotic heart disease of native coronary artery without angina pectoris; E78.00 Pure hypercholesterolemia, unspecified; Z98.890 Other specified postprocedural states; Z90.49 Acquired absence of other specified parts of digestive tract; Z90.710 Acquired absence of both cervix and uterus; Z95.1 Presence of aortocoronary bypass graft; Z86.79 Personal history of other diseases of the circulatory system; Z90.89 Acquired absence of other organs; Z95.4 Presence of other heart-valve replacement; Z87.891 Personal history of nicotine dependence; Z79.82 Long term (current) use of aspirin; Z88.0 Allergy status to penicillin
CPT/HCPCS: 72131; 96372

== ENCOUNTER 2017-10-23 06:16 | Outpatient (RCR) | payer MEDICARE, OTHER | END 2017-10-24 | disposition home or self-care (01) | LOC: CR3 06:16 | DX: Z29.8 Encounter for other specified prophylactic measures (principal) ==

== ENCOUNTER 2017-11-27 07:41 | Outpatient (RCR) | payer MEDICARE, OTHER | END 2017-11-28 | disposition home or self-care (01) | LOC: CR3 07:41 | DX: Z29.8 Encounter for other specified prophylactic measures (principal) ==

== ENCOUNTER 2017-12-24 06:00 | Outpatient (RCR) | payer MEDICARE, OTHER | END 2017-12-29 | disposition home or self-care (01) | LOC: CR3 06:00 | DX: Z29.8 Encounter for other specified prophylactic measures (principal) ==

== ENCOUNTER 2018-01-06 12:28 | Observation (INO) | payer MEDICARE, OTHER ==
[~2018-01-06] VITALS: Ht 167.6 cm; Wt 98.5 kg
[2018-01-06] MEDS ORDERED: ASPIRIN 81 MG CHEW (CHILDREN'S ASA) PO ONE (12:45)
--- NOTE | 2018-01-06 13:03 | ED Chest Pain ---
General Stated Complaint: SWEATY,DIZZY ABD PAIN,SHOULDER PAIN Source: patient Exam Limitations: no limitations History of Present Illness Date Seen by Provider: Jan 06, 2018 Time Seen by Provider: 13:01 Initial Comments to ER per private vehicle with reports of diaphoresis, neck pain, shoulder pain and lightheadedness with brief nausea.This began about 30-45 minutes ago while she was volunteering. She went home and part of the car in her garage but began to feel very weak so she then went to Dr. Dey's office. He is out of the office so they referred her to the emergency room. she has a history of aortic valve replacement with aortic arch aneurysm repair & CABG done [address] Neff. On arrival to ER her blood pressure is noted to be a bit low at 80s to 90s systolic which she states is unusual for her. Timing/Duration: 1-3 hours Severity/Quality: moderate Location: central Radiation: no radiation Activities at Onset: none ASA po TUBE ROOM CASHIER: No NTG SL TUBE ROOM CASHIER: No Allergies and Home Medications Allergies Coded Allergies: Penicillins (Verified Allergy, Unknown, 11/03/10) Home Medications Aspirin 81 Mg Tabec, 81 MG PO DAILY, (Reported) Atorvastatin Calcium 10 Mg Tablet, 20 MG PO DAILY, (Reported) Docusate Sodium 100 Mg Tablet, 100 MG PO DAILY, (Reported) Duloxetine Hcl 60 Mg Capsule.dr, 60 MG PO DAILY, (Reported) Multivits W-Fe,Other Min/Lut 1 Each Tablet, 1 EACH PO DAILY, (Reported) Nebivolol Hcl 5 Mg Tablet, 0.5 EACH PO DAILY, (Reported) [place]-3 Acid Ethyl Esters 1 Gm Capsule, 2 CAP PO BID, (Reported) Polyethylene Glycol 17 Gm Pack, 17 GM PO DAILY, (Reported) Patient Home Medication List Home Medication List Reviewed: Yes Review of Systems Constitutional: see HPI, diaphoresis EENTM: No Symptoms Reported Respiratory: No Symptoms Reported Cardiovascular: See HPI; Denies Chest Pain, Denies Irregular Heart Rate Gastrointestinal: No Symptoms Reported, See HPI Genitourinary: No Symptoms Reported Musculoskeletal: no symptoms reported Skin: no symptoms reported Psychiatric/Neurological: No Symptoms Reported Endocrine: No Symptoms Reported Hematologic/Lymphatic: No Symptoms Reported Past Tnnhnsh-Mqawrd-Ydgaur Hx Patient Social History Type Used: Cigarettes Recent Foreign Travel: No Contact w/Someone Who Travel: No Immunizations Up To Date Tetanus Booster (TDap): Unknown Date of Pneumonia Vaccine: Jun 24, 2009 Date of Influenza Vaccine: Feb 22, 2015 Seasonal Allergies Seasonal Allergies: Yes Past Medical History Surgeries: Yes (LEFT MASTECTOMY, TISSUE HEART VALVE/CABG/THORACIC ANEURYSM REPAIR) Adenoidectomy, Appendectomy, Breast, Cardiac, CABG, Eye Surgery, Gallbladder, Hysterectomy, Oophorectomy, Tonsillectomy, Valve Replacement, Vascular Surgery Respiratory: No Currently Using CPAP: No Currently Using BIPAP: No Cardiac: Yes (THORACIC ANEURYSM REPAIRED, STILL WITH SMALL AAA) Aneurysm, Coronary Artery Disease, High Cholesterol, Hypertension, Valvular Heart Disease Neurological: No Reproductive Disorders: Yes Gastrointestinal: Yes Chronic Constipation Musculoskeletal: Yes (Osteoarthritis) Arthritis Endocrine: No Cataract Hearing Impairment: Hearing Aide Right Cancer: Yes Breast, Uterine Psychosocial: Yes Anxiety, Depression Integumentary: No Blood Disorders: No Adverse Reaction/Blood Tranf: No Family Medical History Patient reports no known family medical history. Physical Exam Vital Signs Vital Signs - First Documented 01/06/18 12:36 Temp 96.7 Pulse 52 Resp 19 B/P (MAP) 95/60 (72) Pulse Ox 100 O2 Delivery Room Air Capillary Refill : Height, Weight, BMI Height: 5'6.00" Weight: 217lbs. 0.0oz. 98.008032de; BMI Method:Stated General Appearance: No Apparent Distress, WD/WN HEENT: PERRL/EOMI, TMs Normal Neck: Full Range of Motion, Normal Inspection Respiratory: Lungs Clear, Normal Breath Sounds, No Accessory Muscle Use, No Respiratory Distress Cardiovascular: Regular Rate, Rhythm, Normal Peripheral Pulses Gastrointestinal: Normal Bowel Sounds, Non Tender, Soft Extremity: Normal Capillary Refill, Normal Inspection Neurologic/Psychiatric: Alert, Oriented x3, No Motor/Sensory Deficits Skin: Normal Color, Warm/Dry Progress/Results/Core Measures Results/Orders Lab Results Laboratory Tests Test 01/06/18 13:13 Range/Units White Blood Count 9.9 4.3-11.0 10^3/uL Red Blood Count 5.03 4.35-5.85 10^6/uL Hemoglobin 14.4 11.5-16.0 G/DL Hematocrit 43 35-52 % Mean Corpuscular Volume 85 80-99 FL Mean Corpuscular Hemoglobin 29 25-34 PG Mean Corpuscular Hemoglobin Concent 34 32-36 G/DL Red Cell Distribution Width 15.8 H 10.0-14.5 % Platelet Count 164 130-400 10^3/uL Mean Platelet Volume 11.4 H 7.4-10.4 FL Neutrophils (%) (Auto) 78 H 42-75 % Lymphocytes (%) (Auto) 13 12-44 % Monocytes (%) (Auto) 9 0-12 % Eosinophils (%) (Auto) 1 0-10 % Basophils (%) (Auto) 0 0-10 % Neutrophils # (Auto) 7.7 1.8-7.8 X 10^3 Lymphocytes # (Auto) 1.3 1.0-4.0 X 10^3 Monocytes # (Auto) 0.9 0.0-1.0 X 10^3 Eosinophils # (Auto) 0.1 0.0-0.3 10^3/uL Basophils # (Auto) 0.0 0.0-0.1 10^3/uL Prothrombin Time 14.1 12.2-14.7 SEC INR Comment 1.1 0.8-1.4 Activated Partial Thromboplast Time 32 24-35 SEC Sodium Level 139 135-145 MMOL/L Potassium Level 4.3 3.6-5.0 MMOL/L Chloride Level 100 98-107 MMOL/L Carbon Dioxide Level 31 21-32 MMOL/L Anion Gap 8 5-14 MMOL/L Blood Urea Nitrogen 24 H 7-18 MG/DL Creatinine 1.69 H 0.60-1.30 MG/DL Estimat Glomerular Filtration Rate 29 BUN/Creatinine Ratio 14 Glucose Level 90 70-105 MG/DL Calcium Level 10.3 H 8.5-10.1 MG/DL Magnesium Level 2.4 1.8-2.4 MG/DL Total Bilirubin 0.8 0.1-1.0 MG/DL Aspartate Amino Transf (AST/SGOT) 26 5-34 U/L Alanine Aminotransferase (ALT/SGPT) 14 0-55 U/L Alkaline Phosphatase 66 40-136 U/L Myoglobin 155.4 H 10.0-92.0 NG/ML Troponin I < 0.30 <0.30 NG/ML B-Type Natriuretic Peptide 143.2 H <100.0 PG/ML Total Protein 7.5 6.4-8.2 GM/DL Albumin 4.0 3.2-4.5 GM/DL My Orders Orders - DENNIS DUARTE APRN Cbc With Automated Diff (01/06/18 12:44) Magnesium (01/06/18 12:44) Chest 1 View, Ap/Pa Only (01/06/18 12:44) Ekg Tracing (01/06/18 12:44) Cardiac Profile 1 (01/06/18 12:44) Comprehensive Metabolic Panel (01/06/18 12:44) Myoglobin Serum (01/06/18 12:44) Protime With Inr (01/06/18 12:44) Partial Thromboplastin Time (01/06/18 12:44) O2 (01/06/18 12:44) Monitor-Rhythm Ecg Trace Only (01/06/18 12:44) Lipid Panel (01/07/18 06:00) Aspirin Chewable Tablet (Baby Aspirin Ch (01/06/18 12:45) Saline Lock/Iv-Start (01/06/18 12:44) BNP (01/06/18 13:00) Ns Iv 1000 Ml (Sodium Chloride 0.9%) (01/06/18 13:15) Ua Culture If Indicated (01/06/18 14:10) Medications Given in ED Current Medications Medications Dose Ordered Sig/Soheila Route Start Time Stop Time Status Last Admin Dose Admin Aspirin 324 mg ONCE ONCE PO 01/06/18 12:45 01/06/18 12:47 DC 01/06/18 13:24 324 MG Vital Signs/I&O 01/06/18 12:36 Temp 96.7 Pulse 52 Resp 19 B/P (MAP) 95/60 (72) Pulse Ox 100 O2 Delivery Room Air Departure Communication (Admissions) Time/Spoke to Admitting Phy: 14:[address] Sanchez. We will admit the patient. Consult cardiology. Her blood pressure is better now, currently at 112 systolic. Heart rate in the upper 40s low 50s. Time/Spoke to Consulting Phy: 14:[address] Dhaliwal. He agrees to consult. Continue all medications as long she is not on a beta sandy.the only medications that I see are mexiletine and losartan/HCTZ as well as fish oil and aspirin. Impression Primary Impression: Hypotension Additional Impression: Weakness Disposition: ADMITTED INPATIENT Condition: Stable Admissions Decision to Admit Reason: Admit from ER (General) Decision to Admit/Date: Jan 06, 2018 Time/Decision to Admit Time: 14:12 Departure-Patient Inst. Referrals: ELIECER MARIE MD (PCP/Family) Primary Care Physician DENNIS DUARTE APRN Jan 06, 2018 13:03
[2018-01-06] MEDS ORDERED: NS IV 1000 ML 1,000 ML IV SCH (13:15)
--- NOTE | 2018-01-06 13:28 | Diagnostic Imaging Report ---
Indication: Chest pain. Comparison made with prior examination of 05/09/2015. Findings: There is cardiomegaly. There has been a previous median sternotomy. There is no pleural effusion or pneumothorax. Mediastinum is unremarkable. Impression: No acute cardiopulmonary abnormality Cardiomegaly. Dictated by: Dictated on workstation # [id number]
[2018-01-06 13:39] LABS: BASOPHILS % (AUTO) 0 % (0-10); EOSINOPHILS # (AUTO) 0.1 10^3/uL (0.0-0.3); EOSINOPHILS % (AUTO) 1 % (0-10); HEMATOCRIT 43 % (35-52); HEMOGLOBIN 14.4 G/DL (11.5-16.0); LYMPHOCYTES # (AUTO) 1.3 X 10^3 (1.0-4.0); LYMPHOCYTES % (AUTO) 13 % (12-44); MEAN CORPUSCULAR HEMOGLOBIN 29 PG (25-34); MEAN CORPUSCULAR HGB CONC 34 G/DL (32-36); MEAN CORPUSCULAR VOLUME 85 FL (80-99); MEAN PLATELET VOLUME 11.4 FL (7.4-10.4); MONOCYTES # (AUTO) 0.9 X 10^3 (0.0-1.0); MONOCYTES % (AUTO) 9 % (0-12); NEUTROPHILS # (AUTO) 7.7 X 10^3 (1.8-7.8); NEUTROPHILS % (AUTO) 78 % (42-75); PLATELET COUNT 164 10^3/uL (130-400); RED BLOOD COUNT 5.03 10^6/uL (4.35-5.85); RED CELL DISTRIBUTION WIDTH 15.8 % (10.0-14.5); WHITE BLOOD COUNT 9.9 10^3/uL (4.3-11.0)
[2018-01-06 13:52] LABS: INR 1.1 (0.8-1.4); PROTHROMBIN TIME PATIENT 14.1 SEC (12.2-14.7)
[2018-01-06 13:54] LABS: ALANINE AMINOTRANSFERASE 14 U/L (0-55); ALKALINE PHOSPHATASE 66 U/L (40-136); BILIRUBIN,TOTAL 0.8 MG/DL (0.1-1.0); BUN/CREATININE RATIO 14; CALCIUM 10.3 MG/DL (8.5-10.1); CARBON DIOXIDE 31 MMOL/L (21-32); CHLORIDE 100 MMOL/L (98-107); CREATININE SERUM 1.69 MG/DL (0.60-1.30); GFR ESTIMATED 29; GLUCOSE 90 MG/DL (70-105); MAGNESIUM 2.4 MG/DL (1.8-2.4); POTASSIUM 4.3 MMOL/L (3.6-5.0); SODIUM 139 MMOL/L (135-145); TOTAL PROTEIN 7.5 GM/DL (6.4-8.2)
[2018-01-06 14:01] LABS: MYOGLOBIN SERUM 155.4 NG/ML (10.0-92.0)
[2018-01-06 15:30] VITALS: BP 124/60
[2018-01-06] MEDS: NS IV 1000 ML 1,000 ML IV SCH (16:02)
[2018-01-06] MEDS ORDERED: ATOR10TA66 PO (16:10)
[2018-01-06] MEDS ORDERED: LOSA1TAB23 PO (16:10)
[2018-01-06] MEDS ORDERED: OMEG-105 PO (16:10)
[2018-01-06] MEDS ORDERED: NF-MEXI150 PO (16:10)
[2018-01-06] MEDS ORDERED: FLUO10CA19 PO (16:10)
[2018-01-06] MEDS ORDERED: LINA145C PO (16:10)
[2018-01-06] MEDS ORDERED: ASPI-983 PO (16:20)
[2018-01-06] MEDS ORDERED: CHOL20003 PO (16:20)
[2018-01-06] MEDS ORDERED: MULT-35 PO (16:20)
[2018-01-06 19:40] VITALS: BP 109/53
[2018-01-07 00:35] VITALS: BP 125/58
[2018-01-07] MEDS: NS IV 1000 ML 1,000 ML IV SCH (02:03)
[2018-01-07 04:06] VITALS: BP 124/67
[2018-01-07 06:16] LABS: CALCIUM 9.6 MG/DL (8.5-10.1); CREATININE SERUM 1.18 MG/DL (0.60-1.30); POTASSIUM 4.4 MMOL/L (3.6-5.0)
[2018-01-07 08:00] VITALS: BP 102/51
--- NOTE | 2018-01-07 08:07 | Consultation-Cardiology ---
HPI-Cardiology Cardiology Consultation: Date of Consultation 01/07/18 Time Seen by Provider: 08:50 Date of Admission 01-06-18 Attending Physician Jovani Sanchez MD Admitting Physician Jimmy Nunez MD Consulting Physician Blas Dhaliwal MD HPI: Chief Complaint: Bradycardia Ms. Olsen is a 77 year old female admitted to 423 from the ED. Her primary project engineering director is Dr. Dey. She reports she typically is very active. She states yesterday morning she took her morning pills around 6 a.m. She then went to the [facility] [place] to exercise. She was on the treadmill for approx 28 minutes, but could only get her HR up to about 135. She then did other weight lifting and stretching exercises. 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 She reports she became clammy, weak and nauseated. She reports her vision was "fuzzy" and she was having difficulty focusing. She reports she sat down for several minutes and began to feel slightly better. She then went to the back room and ate a piece of candy. Her vision had improved, but she still felt unwell. After several minutes she felt she could drive herself home. She reports she drove home without incident. She pulled into her garage, but still felt unwell. So, she then drove herself to Dr. Dey's office where she was directed to the ED. She reports in the ED she felt better, but still not her usual self. She is currently sitting up in a chair at the bedside. She reports she feels better, and wants to go home by noon today. She verbalizes her biggest concern is that her HR is consistently "low" for her. Her HR was 46 in the ED. She states she does take Mexiltine 150 mg TID, but usually she only remembers to take it twice a day. She reports a h/o of a-fib in the past. She denies any CP, palpitations, syncope or near syncope. No c/o LE edema. No c/o fever or chills. Review of Systems-Cardiology Review of Systems Constitutional: No chills, No fever; lightheadedness, malaise Eyes: blurred vision Ears/Nose/Throat: No epistaxis, No recent hearing loss Respiratory: As described under HPI Cardiovascular: As described under HPI Gastrointestinal: constipation; No diarrhea; nausea; No vomiting Genitourinary: No dysuria, No hematuria Musculoskeletal: other (chronic ACW pain following CABG) Skin: No rash, No ulcerations Psychiatric/Neurological: No anxiety, No depression, No seizure, No syncope Hematologic: No bleeding abnormalities XKT-[id number]-[id number] Hx Patient Social History Alcohol Use: Occasionally Uses Recreational Drug Use: No Smoking Status: Former Smoker Former smoker/When Quit: Sep 19, 2000 Type Used: Cigarettes Recent Foreign Travel: No Recent Infectious Disease Expo: No Hospitalization with Isolation: Denies, Unknown Physical Abuse Screen: No Sexual Abuse: No Immunizations Up To Date Tetanus Booster (TDap): Unknown Date of Pneumonia Vaccine: Jun 24, 2009 Date of Influenza Vaccine: Feb 22, 2015 Past Medical History PMH As described under Assessment. Family Medical History Family History: Patient reports no known family medical history. Allergies and Home Medications Allergies Coded Allergies: Penicillins (Verified Allergy, Unknown, 11/03/10) Home Medications Aspirin 81 Mg Tablet.dr, 81 MG PO HS, (Reported) Atorvastatin Calcium 10 Mg Tablet, 10 MG PO DAILY, (Reported) Cholecalciferol (Vitamin D3) 2,000 Unit Capsule, 2,000 UNIT PO HS, (Reported) Linaclotide 145 Mcg Capsule, 145 MCG PO DAILY, (Reported) Losartan/Hydrochlorothiazide 1 Each Tablet, 1 TAB PO DAILY, (Reported) Mexiletine HCl 150 Mg Cap, 150 MG PO TID, (Reported) Multivitamin 1 Each Tablet, 1 TAB PO DAILY, (Reported) [place]-3 Acid Ethyl Esters 1 Gm Capsule, 2 GM PO DAILY, (Reported) TAKES 2 (1GM) CAPSULES Physical Exam-Cardiology Physical Exam Vital Signs/I&O Capillary Refill : Less Than 3 Seconds Constitutional: AAO x 3, well-developed, well-nourished HEENT: PERRL, hearing is well preserved, oral hygience is good Neck: No carotid bruit; carotid pulses are 2 + bilaterally Respiratory: No accessory muscle use, No respiratory distress; chest expansion is symmetric, chest is bilaterally symmetric, lungs clear to auscultation Cardiovascular: regular rate-rhythm; No JVD; S1 and S2 Gastrointestinal: No tender; soft, round, audible bowel sounds Extremities: no lower extremity edema bilateral Neurologic/Psychiatric: grossly intact, power is 5/5 both on sides Skin: No rash, No ulcerations Data Review Labs Radiology NAME: IVETTE OLSEN [facility] REC#: [id number] PT STATUS: REG ER : [id number] PHYSICIAN: DENNIS DUARTE APRN ADMIT DATE: 01/06/18/ER Signed Date of Exam: 01/06/18 CHEST 1 VIEW, AP/PA ONLY Indication: Chest pain. Comparison made with prior examination of 05/09/2015. Findings: There is cardiomegaly. There has been a previous median sternotomy. There is no pleural effusion or pneumothorax. Mediastinum is unremarkable. Impression: No acute cardiopulmonary abnormality Cardiomegaly. Dictated by: Dictated on workstation # [id number] Dict: 01/06/18 1321 Trans: 01/06/18 1330 Interpreted by: ANNA COX MD Electronically signed by: ANNA COX MD 01/06/18 1330 ECG Impression ECG Initial ECG Rhythm: S.Praful A/P-Cardiology Assessment/Admission Diagnosis Sinus bradycardia Acute renal insufficiency - likely d/t vol depletion d/t chronic diuretic tx ( Losartan/HCTZ) Coronary artery disease, had a cardiac catheterization on December 01, 2014 then transferred to [facility] underwent CABG 4 on December 02, 2014, using PENA to LAD, vein graft to diagonal, sequential graft to OM1 and OM 2, aortic valve replacement using # 25 Trifecta tissue valve, ascending aorta replacement with the Gelweave Conduit. H/O hypotension Echocardiogram was done on May 25, 2016 showing mild LVH, more pronounced at the septum, ejection fraction 50 percent, trifecta prosthetic valve in the aortic position tissue valve, functioning normally, PA pressure 30 mmHg Stress test in October 2016 did not show any ischemia or infarction per Dr. Dey Frequent premature ventricular contractions, ventricular bigeminy, maintained on mexiletine 3 times daily - she reports she only takes it twice a day typically Chronic generalized fatigue and loss of energy Thoracic aortic aneurysm, status post ascending aorta replacement with aortic valve replacement and bypass, hospitalized in March 2015 and diagnosed with dissection involving the proximal descending aorta with extension into the aortic arch, she was transferred to [facility] then to , further workup at [facility] diagnosed her with intramural aortic hematoma, monitored and started on beta blockers at that time - intol to BB d/t issues noted below - continues to follow at [facility] Considered intolerant beta blockers secondary to bradycardia and syncope Allergic reaction to the adhesive of the clonidine, had skin rash Abdominal aortic aneurysm 3.4 x 3.5 cm on most recent abdominal aortogram, had intramural aortic hematoma in April 2015, followed at [facility], reported to improve, she was on beta blockers. Currently off beta sandy secondary to bradycardia and syncope Sick sinus syndrome, bradycardia, was intolerant to low-dose beta blockers, h/o frequent PVCs and ventricular bigeminy Bilateral iliac artery dilatation- monitored by Dr. Neff Bilateral nonobstructive carotid arterial stenosis less than 40%, last workup was done in April 2016, continue to monitor for now Hyperlipidemia COPD Obesity, BMI 35 History of left mastectomy in 1970, history of hysterectomy for uterine cancer, has been in remission. Followed by Dr. Nunez Anxiety, depression. Due to the multiple comorbid condition. Clinical Quality Measures AMI/AHF: ASA po Prior to arrival: No DVT/VTE Risk/Contraindication: Risk Factor Score Per Nursin RFS Level Per Nursing on Admit: 3=High AMY NEGRON Jan 07, 2018 08:07
[2018-01-07 08:20] VITALS: BP_SYST 139; BP_SYST 152; BP_DIAS 63; BP_DIAS 67
[2018-01-07 12:00] VITALS: BP 119/56
--- NOTE | 2018-01-07 13:33 | Short Stay Summary-Hospitalist ---
History of Present Illness HPI/Chief Complaint The patient is a 77-year-old white female who was admitted after she presented to the emergency room with a complaint of lightheadedness and feeling as if she were about to pass out. She reported that she had gotten up as usual yesterday morning and gone through her exercise regimen which included cardiopulmonary work. She reported she had been unable to get her heart rate up into the 140s as she usually did. 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 She denied diaphoresis. She was then sent to the emergency room and during the evaluation was found to have a pulse rate of 40 or below. She was not taking any bradycardic's. Source: patient Exam Limitations: no limitations Date Seen 01/07/18 Time Seen by Provider: 13:28 Attending Physician Jovani Wellington MD PCP Jimmy Nunez MD Referring Physician Date of Admission Jan 06, 2018 at 14:24 Home Medications & Allergies Home Medications Reviewed patient Home Medication Reconciliation performed by pharmacy medication reconciliations imaging technician and/or nursing. Patients Allergies have been reviewed. Allergies Allergies Coded Allergies Penicillins (Verified Allergy, Unknown, 11/03/10) Past [place]-Ialray-Wcurmo Hx Past Med/Social Hx: Reviewed Nursing Past Med/Soc Hx Patient Social History Alcohol Use: Occasionally Uses Alcohol Beverage of Choice: Rum Recreational Drug Use: No Smoking Status: Former Smoker Type Used: Cigarettes Physical Abuse Screen: No Sexual Abuse: No Recent Foreign Travel: No Contact w/other who traveled: No Recent Infectious Disease Expo: No Immunizations Up To Date Tetanus Booster (TDap): Unknown Date of Pneumonia Vaccine: Jun 24, 2009 Date of Influenza Vaccine: Feb 22, 2015 Seasonal Allergies Seasonal Allergies: Yes Past Medical History Surgeries: Adenoidectomy, Appendectomy, Breast, Cardiac, CABG, Eye Surgery, Gallbladder, Hysterectomy, Oophorectomy, Tonsillectomy, Valve Replacement, Vascular Surgery Currently Using CPAP: No Currently Using BIPAP: No Cardiac: Aneurysm, Coronary Artery Disease, High Cholesterol, Hypertension, Valvular Heart Disease Reproductive: Yes Gastrointestinal: Chronic Constipation, Polyps Musculoskeletal: Arthritis, Chronic Back Pain HEENT: Cataract Loss of Vision: Denies Hearing Impairment: Bilateral Hearing Aide Cancer: Breast, Uterine What Type of Treatment Did You: Surgical Intervention Psychosocial: Anxiety, Depression History of Blood Disorders: No Adverse Reaction to Blood Marte: No Family History Patient reports no known family medical history. Review of Systems Constitutional: see HPI EENTM: no symptoms reported Respiratory: no symptoms reported Cardiovascular: no symptoms reported Gastrointestinal: no symptoms reported Genitourinary: no symptoms reported Musculoskeletal: no symptoms reported Skin: no symptoms reported Psychiatric/Neurological: No Symptoms Reported Physical Exam Physical Exam Vital Signs Vital Signs - First Documented 01/06/18 12:36 Temp 96.7 Pulse 52 Resp 19 B/P (MAP) 95/60 (72) Pulse Ox 100 O2 Delivery Room Air Capillary Refill : Less Than 3 Seconds Height, Weight, BMI Height: 5'6.00" Weight: 217lbs. 3.0oz. 98.912152wl; 35.1 BMI Method:Stated General Appearance: No Apparent Distress, WD/WN HEENT: Normal ENT Inspection Neck: Normal Inspection Respiratory: Chest Non Tender, Lungs Clear, Normal Breath Sounds, No Accessory Muscle Use, No Respiratory Distress Cardiovascular: Regular Rate, Rhythm, No Edema, No Gallop, No JVD, No Murmur, Normal Peripheral Pulses, Other (radial pulse counted at 60) Gastrointestinal: Normal Bowel Sounds, No Organomegaly, No Pulsatile Mass, Non Tender Back: Normal Inspection Extremity: Normal Capillary Refill, Normal Inspection, Normal Range of Motion, Non Tender, No Calf Tenderness, No Pedal Edema Neurologic/Psychiatric: Alert, Oriented x3, No Motor/Sensory Deficits, Normal Mood/Affect Skin: Normal Color, Warm/Dry Lymphatic: No Adenopathy Results Results/Procedures Labs Laboratory Tests 01/06/18 13:13 01/07/18 05:20 Patient resulted labs reviewed. Short Stay Diagnosis Discharge Diagnosis-Short Stay Admission Diagnosis 1.bradycardia/near syncope. 2.past history of coronary artery disease with intervention Final Discharge Diagnosis Bradycardia/near syncope, resolved. 2.past history of coronary artery disease post intervention Conclusion Plan Discharge: See discharge sequence for medications and activities Clinical Quality Measures AMI/AHF: ASA po Prior to arrival: No DVT/VTE Risk/Contraindication: Risk Factor Score Per Nursin RFS Level Per Nursing on Admit: 3=High JOVANI WELLINGTON MD Jan 07, 2018 13:33
--- NOTE | 2018-01-07 13:46 | Discharge Instructions ---
Discharge Instructions Patient Instructions Patient Instructions: Medications as listed in the discharge sequence. Resume usual activities Return to The Hospital For: If recurrent symptoms Activity & Diet Discharge Diet: No Restrictions NAHUN WELLINTGON MD Jan 07, 2018 13:46
[2018-01-07 14:08] VITALS: BP 119/56
--- NOTE | 2018-01-07 16:40 | Consultation-Cardiology ---
HPI-Cardiology Cardiology Consultation: Date of Consultation 01/07/18 Time Seen by Provider: 10:30 Date of Admission Attending Physician Jovani Sanchez MD Admitting Physician Jimmy Nunez MD Consulting Physician SAEED GIPSON MD, MA, FACP, FACC, FSCAI, CCDS Primary service station equipment mechanic: Dr Dey HPI: Chief Complaint: Bradycardia HPI: Ms. Mcintyre is a 77 year old female admitted to 423 from the ED. Her primary service station equipment mechanic is Dr. Dey. She reports she typically is very active. She states yesterday morning she took her morning pills around 6 a.m. She then went to the [facility] to exercise. She was on the treadmill for approx 28 minutes, but could only get her HR up to about 135. She then did other weight lifting and stretching exercises. 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 She reports she became clammy, weak and nauseated. She reports her vision was "fuzzy" and she was having difficulty focusing. She reports she sat down for several minutes and began to feel slightly better. She then went to the back room and ate a piece of candy. Her vision had improved, but she still felt unwell. After several minutes she felt she could drive herself home. She reports she drove home without incident. She pulled into her garage, but still felt unwell. So, she then drove herself to Dr. Dey's office where she was directed to the ED. She reports in the ED she felt better, but still not her usual self. She is currently sitting up in a chair at the bedside. She reports she feels better, and wants to go home by noon today. She verbalizes her biggest concern is that her HR is consistently "low" for her. Her HR was 46 in the ED. She states she does take Mexiltine 150 mg TID, but usually she only remembers to take it twice a day. She reports a h/o of a-fib in the past. She denies any CP, palpitations, syncope or near syncope. No c/o LE edema. No c/o fever or chills. Review of Systems-Cardiology Review of Systems Constitutional: No chills, No fever; lightheadedness, malaise Eyes: blurred vision Ears/Nose/Throat: No epistaxis, No recent hearing loss Respiratory: As described under HPI Cardiovascular: As described under HPI Gastrointestinal: constipation; No diarrhea; nausea; No vomiting Genitourinary: No dysuria, No hematuria Musculoskeletal: other (chronic ACW pain following CABG) Skin: No rash, No ulcerations Psychiatric/Neurological: No anxiety, No depression, No seizure, No syncope Hematologic: No bleeding abnormalities CBH-Wrevlt-Icpmfq Hx Patient Social History Alcohol Use: Occasionally Uses Recreational Drug Use: No Smoking Status: Former Smoker Former smoker/When Quit: Sep 19, 2000 Type Used: Cigarettes Recent Foreign Travel: No Recent Infectious Disease Expo: No Hospitalization with Isolation: Denies, Unknown Physical Abuse Screen: No Sexual Abuse: No Immunizations Up To Date Tetanus Booster (TDap): Unknown Date of Pneumonia Vaccine: Jun 24, 2009 Date of Influenza Vaccine: Feb 22, 2015 Past Medical History PMH As described under Assessment. Family Medical History Family History: Patient reports no known family medical history. Allergies and Home Medications Allergies Coded Allergies: Penicillins (Verified Allergy, Unknown, 11/03/10) Home Medications Aspirin 81 Mg Tablet.dr, 81 MG PO HS, (Reported) Atorvastatin Calcium 10 Mg Tablet, 10 MG PO DAILY, (Reported) Cholecalciferol (Vitamin D3) 2,000 Unit Capsule, 2,000 UNIT PO HS, (Reported) Linaclotide 145 Mcg Capsule, 145 MCG PO DAILY, (Reported) Losartan/Hydrochlorothiazide 1 Each Tablet, 1 TAB PO DAILY, (Reported) Mexiletine HCl 150 Mg Cap, 150 MG PO TID, (Reported) Multivitamin 1 Each Tablet, 1 TAB PO DAILY, (Reported) [place]-3 Acid Ethyl Esters 1 Gm Capsule, 2 GM PO DAILY, (Reported) TAKES 2 (1GM) CAPSULES Patient Home Medication List Home Medication List Reviewed: Yes Physical Exam-Cardiology Physical Exam Vital Signs/I&O 01/07/18 01/07/18 01/07/18 01/07/18 07:00 08:00 08:20 12:00 Temp 97.5 98.0 Pulse 66 55 54 55 60 66 Resp 18 20 B/P (MAP) 102/51 (68) 139/63 (88) 119/56 (77) 152/67 (95) 139/63 (88) Pulse Ox 98 97 O2 Delivery Room Air Room Air 01/07/18 01/07/18 13:00 14:08 Pulse 51 51 Resp 20 B/P (MAP) 119/56 Pulse Ox 97 O2 Delivery Room Air 01/07/18 00:00 Intake Total 1840 ml Output Total 300 ml Balance 1540 ml Capillary Refill : Less Than 3 Seconds Constitutional: AAO x 3, well-developed, well-nourished HEENT: PERRL, hearing is well preserved, oral hygience is good Neck: No carotid bruit; carotid pulses are 2 + bilaterally Respiratory: No accessory muscle use, No respiratory distress; chest expansion is symmetric, chest is bilaterally symmetric, lungs clear to auscultation Cardiovascular: regular rate-rhythm; No JVD; S1 and S2 Gastrointestinal: No tender; soft, round, audible bowel sounds Extremities: no lower extremity edema bilateral Neurologic/Psychiatric: grossly intact, power is 5/5 both on sides Skin: No rash, No ulcerations Data Review Labs Laboratory Tests 01/07/18 05:20: Sodium Level 145, Potassium Level 4.4, Chloride Level 109H, Carbon Dioxide Level 27, Anion Gap 9, Blood Urea Nitrogen 25H, Creatinine 1.18, Estimat Glomerular Filtration Rate 44, BUN/Creatinine Ratio 21, Glucose Level 87, Calcium Level 9.6, Triglycerides Level 68, Cholesterol Level 154, LDL Cholesterol Direct 74, VLDL Cholesterol 14, HDL Cholesterol 62H Laboratory Tests 01/06/18 13:13 01/07/18 05:20 A/P-Cardiology Assessment/Admission Diagnosis Sinus bradycardia and sinus node dysfunction, chronic Acute renal insufficiency - likely d/t vol depletion d/t chronic diuretic tx ( Losartan/HCTZ); improved this am Coronary artery disease, had a cardiac catheterization on December 01, 2014 then transferred to [facility] underwent CABG 4 on December 02, 2014, using PENA to LAD, vein graft to diagonal, sequential graft to OM1 and OM 2, aortic valve replacement using # 25 Trifecta tissue valve, ascending aorta replacement with the Gelweave Conduit. H/O hypotension Echocardiogram was done on May 25, 2016 showing mild LVH, more pronounced at the septum, ejection fraction 50 percent, trifecta prosthetic valve in the aortic position tissue valve, functioning normally, PA pressure 30 mmHg Stress test in October 2016 did not show any ischemia or infarction per Dr. Dey Frequent premature ventricular contractions, ventricular bigeminy, for which Dr Wright has her on mexiletine 3 times daily - she reports she only takes it twice a day typically Chronic generalized fatigue and loss of energy Thoracic aortic aneurysm, status post ascending aorta replacement with aortic valve replacement and bypass, hospitalized in March 2015 and diagnosed with dissection involving the proximal descending aorta with extension into the aortic arch, she was transferred to [facility] then to , further workup at [facility] diagnosed her with intramural aortic hematoma, monitored and started on beta blockers at that time - intol to BB d/t issues noted below - continues to follow at [facility] Considered intolerant beta blockers secondary to bradycardia and syncope Allergic reaction to the adhesive of the clonidine, had skin rash Abdominal aortic aneurysm 3.4 x 3.5 cm on most recent abdominal aortogram, had intramural aortic hematoma in April 2015, followed at [facility], reported to improve, she was on beta blockers. Currently off beta sandy secondary to bradycardia and syncope Sick sinus syndrome, bradycardia, was intolerant to low-dose beta blockers, h/o frequent PVCs and ventricular bigeminy Bilateral iliac artery dilatation- monitored by Dr. Neff Bilateral nonobstructive carotid arterial stenosis less than 40%, last workup was done in April 2016, continue to monitor for now Hyperlipidemia COPD Obesity, BMI 35 History of left mastectomy in 1970, history of hysterectomy for uterine cancer, has been in remission. Followed by Dr. Nunez Anxiety, depression. Due to the multiple comorbid condition. Discussion and Recomendations * She has multiple comorbidities that are outline above * I reviewed her records for Dr Dey's and answered patient's CV-related questions in detail * She is currently asymptomatic and clinically stable and wishes to to home * We have advised f/u with Dr Dey Clinical Quality Measures AMI/AHF: ASA po Prior to arrival: No DVT/VTE Risk/Contraindication: Risk Factor Score Per Nursin RFS Level Per Nursing on Admit: 3=High SAEED GIPSON MD FACP [facility] CCDS Jan 07, 2018 16:40
== END 2018-01-07 13:39 | disposition home or self-care (01) ==
LOC: EDUNIT# 12:28 → ER 12:30 → 4TH 14:24 → UNDOADMOB 14:24 → 4TH 15:05 → UNDODISOB 01-07 14:09
PROVIDERS: ADMIT Internal Medicine; ATTEND Internal Medicine
DX: I49.5 Sick sinus syndrome (principal); I49.3 Ventricular premature depolarization; N28.9 Disorder of kidney and ureter, unspecified; I25.10 Atherosclerotic heart disease of native coronary artery without angina pectoris; I10 Essential (primary) hypertension; E78.5 Hyperlipidemia, unspecified; J44.9 Chronic obstructive pulmonary disease, unspecified; I65.23 Occlusion and stenosis of bilateral carotid arteries; K59.09 Other constipation; R53.1 Weakness; F41.9 Anxiety disorder, unspecified; F32.9 Major depressive disorder, single episode, unspecified; Z79.82 Long term (current) use of aspirin; Z95.1 Presence of aortocoronary bypass graft; Z95.2 Presence of prosthetic heart valve; Z85.3 Personal history of malignant neoplasm of breast; Z85.41 Personal history of malignant neoplasm of cervix uteri; Z87.891 Personal history of nicotine dependence
CPT/HCPCS: 36415; 71045; 80048; 80053; 80061; 83735; 83874; 83880; 84484; 85025; 85610; 85730; 93005; 93041; 96360; G0378

== ENCOUNTER 2018-01-27 06:45 | Outpatient (RCR) | payer MEDICARE, OTHER ==
[~2018-01-27 06:45] MED LIST changes: +ASPI-983 PO; +CHOL20003 PO; +FLUO10CA19 PO; +LINA145C PO; +LOSA1TAB23 PO; +MULT-35 PO; +NF-MEXI150 PO; +OMEG-105 PO
== END 2018-01-30 | disposition home or self-care (01) ==
LOC: CR3 06:45
DX: Z29.8 Encounter for other specified prophylactic measures (principal)

== ENCOUNTER 2018-03-04 06:00 | Outpatient (RCR) | payer MEDICARE, OTHER | END 2018-03-05 | disposition home or self-care (01) | LOC: CR3 06:00 | DX: Z29.8 Encounter for other specified prophylactic measures (principal) ==

== ENCOUNTER 2018-04-02 07:42 | Outpatient (RCR) | payer MEDICARE, OTHER | END 2018-04-05 | disposition home or self-care (01) | LOC: CR3 07:42 | DX: Z29.8 Encounter for other specified prophylactic measures (principal) ==

== ENCOUNTER 2018-05-06 06:00 | Outpatient (RCR) | payer MEDICARE, OTHER | END 2018-05-15 | disposition home or self-care (01) | LOC: CR3 06:00 | DX: Z29.8 Encounter for other specified prophylactic measures (principal) ==

== ENCOUNTER → 2018-06-06 | Outpatient (CLI) | payer MEDICARE, OTHER | LOC: CARD 06:53 | PROVIDERS: ATTEND Internal Medicine Cardiovascular Disease | DX: I25.10 Atherosclerotic heart disease of native coronary artery without angina pectoris (principal); I10 Essential (primary) hypertension; R06.00 Dyspnea, unspecified; I71.4 Abdominal aortic aneurysm, without rupture; I07.1 Rheumatic tricuspid insufficiency | CPT/HCPCS: 93306 ==

== ENCOUNTER 2018-06-11 06:27 | Outpatient (RCR) | payer MEDICARE, OTHER | END 2018-06-18 | disposition home or self-care (01) | LOC: CR3 06:27 | DX: Z29.8 Encounter for other specified prophylactic measures (principal) ==

== ENCOUNTER → 2018-07-25 | Outpatient (RCR) | payer MEDICARE, OTHER | END | disposition home or self-care (01) | LOC: CR3 06-25 06:00 | DX: Z29.8 Encounter for other specified prophylactic measures (principal) ==

== ENCOUNTER → 2018-08-27 | Outpatient (RCR) | payer MEDICARE, OTHER | END | disposition home or self-care (01) | LOC: CR3 07-28 06:00 | DX: Z29.8 Encounter for other specified prophylactic measures (principal) ==

== ENCOUNTER 2018-09-25 06:00 | Outpatient (RCR) | payer MEDICARE, OTHER | END 2018-09-27 | disposition home or self-care (01) | LOC: CR3 06:00 | DX: Z29.8 Encounter for other specified prophylactic measures (principal) ==

== ENCOUNTER 2018-10-28 06:00 | Outpatient (RCR) | payer MEDICARE, OTHER | END 2018-10-29 | disposition home or self-care (01) | LOC: CR3 06:00 | DX: Z29.8 Encounter for other specified prophylactic measures (principal) ==

== ENCOUNTER 2018-11-28 06:14 | Outpatient (RCR) | payer MEDICARE, OTHER | END 2018-11-29 | disposition home or self-care (01) | LOC: CR3 06:14 | DX: Z29.8 Encounter for other specified prophylactic measures (principal) ==

== ENCOUNTER → 2018-12-04 | Outpatient (CLI) | payer MEDICARE, OTHER ==
--- NOTE | 2018-12-04 15:25 | Diagnostic Imaging Report ---
EXAMINATION: Lumbar spine. INDICATION: Back pain. FINDINGS: AP, lateral and spot lateral views were obtained. As noted on the prior exam of 01/07/2017 there is a long-standing 40-50% compression fracture of L3. The previous study also indicated a mild compression deformity of L2. The L2 vertebra is unchanged on this exam. There is no fracture or acute bony abnormality appreciated. The severe degenerative disc and bony disease at L4-L5 and L5-S1 seen previously does not appear to have progressed significantly. The other intervertebral spaces seem similar to the prior exam as well. There is no fracture or acute bony abnormality evident. There is no sign of a paraspinal mass. However, the lateral view does show that there is an aneurysm of the distal infrarenal abdominal aorta. On the prior CTA chest and abdomen exam of 05/09/2015 this aneurysm measured approximately 3.9 cm in maximum AP diameter. The previous study also revealed a type B aortic dissection. On the lateral view this exam the AP diameter of the aneurysm is estimated to be 4.5 cm. If further study is desired, then repeat CTA chest exam would be recommended. IMPRESSION: 1. There is no evidence for an acute bony abnormality. The compression deformities involving L2 and L3 seen previously appear stable. 2. If clinical concern regarding an acute abnormality persists, then MRI would be recommended for further study. 3. The degenerative disc and bony disease seen previously does not appear to have progressed significantly. 4. The aneurysm of the infrarenal abdominal aorta seen on the prior exam of 2014 does measure somewhat larger on this study. Recommendations as above. Dictated by: Dictated on workstation # [id number]
--- NOTE | 2018-12-04 16:42 | Diagnostic Imaging Report ---
EXAMINATION: Pelvis and bilateral hips. INDICATION: Hip pain. FINDINGS: There are no prior studies available for comparison. An AP view of the pelvis and AP and lateral views of both hip joints were obtained. There is no fracture, dislocation, or acute bony abnormality evident. There is moderate degenerative disease of the hip and sacroiliac joints and fairly severe degenerative disc and bony disease in the visualized lower lumbar spine. As noted on the prior lumbar spine exam of 01/07/2017, there are surgical clips on each side of the pelvis. The soft tissues are unremarkable. IMPRESSION: There is no evidence for an acute bony abnormality. Dictated by: Dictated on workstation # [id number]
== END ==
LOC: RAD 12:20
DX: M43.8X6 Other specified deforming dorsopathies, lumbar region (principal); M51.37 Other intervertebral disc degeneration, lumbosacral region; I71.4 Abdominal aortic aneurysm, without rupture; M89.9 Disorder of bone, unspecified; M25.552 Pain in left hip; M25.551 Pain in right hip; Z98.890 Other specified postprocedural states
CPT/HCPCS: 72100; 73523

== ENCOUNTER → 2018-12-10 | Outpatient (CLI) | payer MEDICARE, OTHER ==
[2018-12-10 14:14] LABS: HEMOGLOBIN 15.2 G/DL (11.5-16.0); MEAN PLATELET VOLUME 11.1 FL (7.4-10.4); RED CELL DISTRIBUTION WIDTH 15.1 % (10.0-14.5); WHITE BLOOD COUNT 6.4 10^3/uL (4.3-11.0)
[2018-12-10 15:24] LABS: ALBUMIN 3.9 GM/DL (3.2-4.5); BILIRUBIN,TOTAL 0.6 MG/DL (0.1-1.0); CALCIUM 9.8 MG/DL (8.5-10.1); CREATININE SERUM 1.07 MG/DL (0.60-1.30); POTASSIUM 4.5 MMOL/L (3.6-5.0); TOTAL PROTEIN 7.5 GM/DL (6.4-8.2)
--- NOTE | 2018-12-10 16:02 | Diagnostic Imaging Report ---
PROCEDURE: CT angiography of the chest with contrast. TECHNIQUE: Multiple contiguous axial images were obtained through the chest after uneventful bolus administration of intravenous contrast. 2D reconstructed CTA MIP acquisitions were also performed. Auto Exposure Controls were utilized during the CT exam to meet ALARA standards for radiation dose reduction. INDICATION: Aortic aneurysm evaluation. COMPARISON: Correlation is made with prior CT from 05/09/2015. FINDINGS: The aortic root appears to be normal in size. Ascending aorta just proximal to the transverse aorta measures 4.7 cm AP, unchanged from prior exam. Transverse aorta is unremarkable. 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 Descending thoracic aorta measures approximately 3.9 cm AP compared with 5.1 cm on prior exam. Aorta near the hiatus/upper abdomen is dilated measuring 4.6 cm AP compared with 4.1 cm on prior. Transverse dimension is 5.3 cm compared with 4.9 cm on prior. No pericardial or pleural fluid is identified. Calcified granuloma in the right upper lobe is noted. There is some minimal dependent atelectasis in both lower lobes. No noncalcified masses or infiltrates are seen. Upper abdomen is unremarkable apart from aneurysmal dilatation of the abdominal aorta. IMPRESSION: 1. Previously noted dissection involving the descending thoracic aorta on prior CT is no longer appreciated. The overall caliber of the descending thoracic aorta has reduced since prior CT. There has been some overall increase in caliber of the upper abdominal aorta when compared with prior CT which is aneurysmal. No dissection in the abdominal aorta is detected. There is no evidence of rupture or leakage. Dictated by: Dictated on workstation # [id number]
== END ==
LOC: RAD 07:59
DX: I71.4 Abdominal aortic aneurysm, without rupture (principal)
CPT/HCPCS: 36415; 71275; 80053; 84443; 85027

== ENCOUNTER → 2018-12-31 | Outpatient (RCR) | payer MEDICARE, OTHER | END | disposition home or self-care (01) | LOC: CR3 12-01 06:00 | DX: Z29.8 Encounter for other specified prophylactic measures (principal) ==

== ENCOUNTER 2019-01-28 07:04 | Outpatient (RCR) | payer MEDICARE, OTHER | END 2019-01-31 | LOC: CR3 07:04 | DX: Z01.89 Encounter for other specified special examinations (principal) ==

== ENCOUNTER 2019-03-02 06:16 | Outpatient (RCR) | payer MEDICARE, OTHER | END 2019-03-04 | disposition home or self-care (01) | LOC: CR3 06:16 | DX: Z29.8 Encounter for other specified prophylactic measures (principal) ==

== ENCOUNTER 2019-04-02 06:00 | Outpatient (RCR) | payer MEDICARE, OTHER | END 2019-04-04 | disposition home or self-care (01) | LOC: CR3 06:00 | DX: Z29.8 Encounter for other specified prophylactic measures (principal) ==

== ENCOUNTER 2019-04-13 06:53 | Outpatient (RCR) | payer MEDICARE, OTHER | END 2019-05-06 | disposition home or self-care (01) | LOC: CR3 06:53 | DX: Z29.8 Encounter for other specified prophylactic measures (principal) ==

== ENCOUNTER 2019-05-13 07:00 | Outpatient (RCR) | payer MEDICARE, OTHER | END 2019-06-12 | disposition home or self-care (01) | LOC: CR3 07:00 | DX: Z29.8 Encounter for other specified prophylactic measures (principal) ==

== ENCOUNTER 2019-07-21 06:00 | Outpatient (RCR) | payer MEDICARE, OTHER ==
[~2019-07-21 06:00] MED LIST changes: -FLUO10CA19 PO; +FLUO10CA30 PO
== END 2019-07-22 | disposition home or self-care (01) ==
LOC: CR3 06:00
DX: Z29.8 Encounter for other specified prophylactic measures (principal)

== ENCOUNTER 2019-08-14 08:01 | Outpatient (RCR) | payer MEDICARE, OTHER | END 2019-08-16 | disposition home or self-care (01) | DX: M54.5 Low back pain (principal) ==

== ENCOUNTER 2019-08-19 07:46 | Outpatient (RCR) | payer MEDICARE, OTHER | END 2019-08-22 | disposition home or self-care (01) | LOC: CR3 07:46 | DX: Z29.8 Encounter for other specified prophylactic measures (principal) ==

== ENCOUNTER 2019-08-31 06:44 | Outpatient (RCR) | payer MEDICARE, OTHER | END 2019-09-23 | disposition home or self-care (01) | LOC: CR3 06:44 | DX: Z29.8 Encounter for other specified prophylactic measures (principal) ==

== ENCOUNTER 2019-11-12 09:16 | Outpatient (RCR) | payer MEDICARE, OTHER | END 2019-11-16 | disposition home or self-care (01) | DX: M54.5 Low back pain (principal) ==

== ENCOUNTER → 2020-10-05 | Outpatient (RCR) | payer MEDICARE, OTHER ==
[~2020-10-05] MED LIST changes: +ASPI-1238 PO; -ASPI-983 PO; -FLUO10CA30 PO; +FLUO10CA31 PO; -OMEG-105 PO; +OMEG-218 PO
== END | disposition home or self-care (01) ==
LOC: CR3 09-05 08:29
DX: Z29.8 Encounter for other specified prophylactic measures (principal)

== ENCOUNTER 2020-11-03 06:00 | Outpatient (RCR) | payer MEDICARE, OTHER | END 2020-11-06 | disposition home or self-care (01) | LOC: CR3 06:00 | DX: Z29.8 Encounter for other specified prophylactic measures (principal) ==

== ENCOUNTER → 2020-12-07 | Outpatient (RCR) | payer MEDICARE, OTHER | END | disposition home or self-care (01) | LOC: CR3 11-07 08:04 | DX: Z29.8 Encounter for other specified prophylactic measures (principal) ==

== ENCOUNTER 2020-12-28 07:56 | Outpatient (RCR) | payer MEDICARE, OTHER | END 2021-01-13 | disposition home or self-care (01) | LOC: CR3 07:56 | DX: Z29.8 Encounter for other specified prophylactic measures (principal) ==

== ENCOUNTER → 2021-04-10 | Outpatient (CLI) | payer MEDICARE, OTHER ==
[~2021-04-10] MED LIST changes: +CATHETER FLUSH 10 ML SYR IV PRN; +REGADENOSON 0.4 MG/5 ML SYR (LEXISCAN) IV ONE
[2021-04-10 09:28] VITALS: BP 156/80
[2021-04-10] MEDS: REGADENOSON 0.4 MG/5 ML SYR (LEXISCAN) IV ONE ×2 (09:28→09:38)
--- NOTE | 2021-04-12 08:39 | Cardiology Stress Test Report ---
Stress Test Report Date of Procedure/Referring: Date of Procedure: Apr 10, 2021 PCP Paulie Dey MD Admitting Physician Rosalba Cullen ([place]) Indications: HTN Baseline Heart Rate: 56 Baseline Blood Pressure: Blood Pressure Systolic: 156 Blood Pressure Diastolic: 80 Baseline Vitals Vital Signs Date Time Temp Pulse Resp B/P (MAP) Pulse Ox O2 Delivery O2 Flow Rate FiO2 04/10/21 09:28 56 156/80 (105) Baseline EKG: Baseline EKG: NSR Summary After explaining the procedure to the patient, she signed a consent and then brought to the stress nuclear laboratory. Patient received 0.4 mg Lexiscan for stress test, ECG, heart rate and blood pressure were monitored continuously. Resting and stress dose of radio tracer were injected, imaging was acquired and reviewed in short axis, horizontal long axis and vertical long axis views. TID: 1.02 SSS: 7 SDS: 2 EF: 72 1. Patient tolerated Lexiscan well 2. Mild decrease uptake involving the inferior wall and inferoseptum with mild reversibility suggestive of ischemia 3. Normal left ventricular size, EF 72% PAULIE DEY MD Apr 12, 2021 08:39
== END ==
LOC: CARD 07:48
PROVIDERS: ATTEND Internal Medicine Cardiovascular Disease
DX: I25.10 Atherosclerotic heart disease of native coronary artery without angina pectoris (principal); I10 Essential (primary) hypertension
CPT/HCPCS: 78452; 93017; A9502

== ENCOUNTER → 2021-04-19 | Outpatient (RCR) | payer MEDICARE, OTHER ==
[~2021-04-19] MED LIST changes: -CATHETER FLUSH 10 ML SYR IV PRN; -REGADENOSON 0.4 MG/5 ML SYR (LEXISCAN) IV ONE
== END | disposition home or self-care (01) ==
PROVIDERS: ATTEND Nurse Practitioner
DX: M54.2 Cervicalgia (principal); I11.9 Hypertensive heart disease without heart failure; M54.9 Dorsalgia, unspecified

== ENCOUNTER 2021-06-22 08:01 | Outpatient (RCR) | payer MEDICARE, OTHER ==
[~2021-06-22 08:01] MED LIST changes: -FLUO10CA31 PO; +FLUO10CA33 PO
== END 2021-06-23 | disposition home or self-care (01) ==
PROVIDERS: ATTEND Nurse Practitioner
DX: M54.50 Low back pain, unspecified (principal); M54.2 Cervicalgia; I11.9 Hypertensive heart disease without heart failure

== ENCOUNTER 2021-07-20 08:00 | Outpatient (RCR) | payer MEDICARE, OTHER | END 2021-07-24 | disposition home or self-care (01) | PROVIDERS: ATTEND Nurse Practitioner | DX: M54.2 Cervicalgia (principal); M54.50 Low back pain, unspecified; I11.9 Hypertensive heart disease without heart failure ==

== ENCOUNTER 2021-08-18 10:22 | Outpatient (RCR) | payer MEDICARE, OTHER | END 2021-08-21 | disposition home or self-care (01) | PROVIDERS: ATTEND Nurse Practitioner | DX: M54.50 Low back pain, unspecified (principal); M54.2 Cervicalgia; I11.9 Hypertensive heart disease without heart failure ==

== ENCOUNTER 2021-09-19 08:02 | Outpatient (RCR) | payer MEDICARE, OTHER | END 2021-09-21 | disposition home or self-care (01) | PROVIDERS: ATTEND Nurse Practitioner | DX: M54.50 Low back pain, unspecified (principal); M54.2 Cervicalgia; I10 Essential (primary) hypertension ==

== ENCOUNTER 2021-10-03 09:23 | Outpatient (RCR) | payer MEDICARE, OTHER | END 2021-10-21 | disposition home or self-care (01) | PROVIDERS: ATTEND Nurse Practitioner | DX: M54.50 Low back pain, unspecified (principal); M54.2 Cervicalgia; I10 Essential (primary) hypertension ==

== ENCOUNTER 2021-11-17 07:48 | Outpatient (RCR) | payer MEDICARE, OTHER | END 2021-11-20 | disposition home or self-care (01) | LOC: CR3 07:48 | DX: Z29.8 Encounter for other specified prophylactic measures (principal) ==

== ENCOUNTER 2021-11-27 13:31 | Outpatient (RCR) | payer MEDICARE, OTHER | END 2022-01-20 | disposition home or self-care (01) | LOC: CR3 13:31 | DX: Z29.8 Encounter for other specified prophylactic measures (principal) ==

== ENCOUNTER → 2022-02-21 | Outpatient (RCR) | payer MEDICARE, OTHER | END | disposition home or self-care (01) | PROVIDERS: ATTEND Nurse Practitioner | DX: Z48.89 Encounter for other specified surgical aftercare (principal); R26.0 Ataxic gait ==

== ENCOUNTER 2022-03-21 08:00 | Outpatient (RCR) | payer MEDICARE, OTHER | END 2022-03-23 | disposition home or self-care (01) | PROVIDERS: ATTEND Nurse Practitioner | DX: Z48.89 Encounter for other specified surgical aftercare (principal); I11.9 Hypertensive heart disease without heart failure; R26.0 Ataxic gait ==

== ENCOUNTER 2022-04-18 08:32 | Outpatient (RCR) | payer MEDICARE, OTHER | END 2022-04-23 | disposition home or self-care (01) | PROVIDERS: ATTEND Nurse Practitioner | DX: Z48.89 Encounter for other specified surgical aftercare (principal); I11.9 Hypertensive heart disease without heart failure; R26.0 Ataxic gait ==

== ENCOUNTER 2022-05-21 14:52 | Outpatient (RCR) | payer MEDICARE, OTHER | END 2022-05-23 | disposition home or self-care (01) | LOC: CR3 14:52 | DX: Z29.8 Encounter for other specified prophylactic measures (principal) ==

== ENCOUNTER → 2022-05-23 | Outpatient (RCR) | payer MEDICARE, OTHER | END | disposition home or self-care (01) | PROVIDERS: ATTEND Nurse Practitioner | DX: Z48.89 Encounter for other specified surgical aftercare (principal); I11.9 Hypertensive heart disease without heart failure; R26.0 Ataxic gait ==

== ENCOUNTER 2022-06-06 08:45 | Outpatient (RCR) | payer MEDICARE, OTHER | END 2022-06-23 | disposition home or self-care (01) | PROVIDERS: ATTEND Nurse Practitioner | DX: Z48.89 Encounter for other specified surgical aftercare (principal); I11.9 Hypertensive heart disease without heart failure; R26.0 Ataxic gait ==

== ENCOUNTER 2022-07-04 14:05 | Emergency (ER) | payer MEDICARE, OTHER ==
[~2022-07-04] VITALS: Ht 167 cm; Wt 92.5 kg
--- NOTE | 2022-07-04 14:24 | ED Cardiac General ---
History of Present Illness General Chief Complaint: Chest Pain Stated Complaint: CHEST PAINS Nursing Triage Note: PT PRESENTS TO ED VIA POV FROM HOME WITH COMPLAINTS OF CP STARTING LAST NIGHT FOR APROX 2 HOURS. PT REPORTS SHE DOES NOT CURRENTLY HAVE CP. PT STATES HER BP TODAY WAS LOW. PT REPORTS HER BP MEDICATION WERE INCREASED ON SATURDAY. PT ALSO REPORTS GENERALIZED WEAKNESS. Source: patient Exam Limitations: no limitations History of Present Illness Date Seen by Provider: Jul 04, 2022 Time Seen by Provider: 14:12 Initial Comments 82-year-old female with history of coronary artery disease, aortic valve repair and aneurysm repair presents to the emergency department for low blood pressures. She had her losartan increased on Saturday from 25 to 50 mg. She states since then she said dizziness lightheadedness and reported a blood pressure before she arrived to the 80s systolic. She does endorse that she had some chest pains last night that lasted about 2 hours from 7-9. This was described as pain in her left shoulder, dull throbbing without radiation. No obvious aggravating or alleviating factors and resolved spontaneously. She has not had any chest pains today. She denies recent feeling fevers or chills. She did have a stress test in 2020 and states she is actually scheduled to have a heart cath on the with an ultrasound scheduled tomorrow. Allergies and Home Medications Allergies Coded Allergies: Penicillins (Verified Allergy, Unknown, 11/03/10) Patient Home Medication List Home Medication List Reviewed: Yes Aspirin (Aspirin EC) 81 Mg Tablet.dr, 81 MG PO HS, (Reported) Entered as Reported by: GAL FERRELL on 01/06/18 1620 Atorvastatin Calcium (Atorvastatin Calcium) 10 Mg Tablet, 10 MG PO DAILY, (Reported) Entered as Reported by: GAL FERRELL on 01/06/18 1610 Cholecalciferol (Vitamin D3) (Vitamin D3) 2,000 Unit Capsule, 2,000 UNIT PO HS, (Reported) Entered as Reported by: GAL FERRELL on 01/06/18 1620 Linaclotide (Linzess) 145 Mcg Capsule, 145 MCG PO DAILY, (Reported) Entered as Reported by: GAL FERRELL on 01/06/18 1610 Losartan/Hydrochlorothiazide (Losartan-Hctz 100-25 mg Tab) 1 Each Tablet, 1 TAB PO DAILY, (Reported) Entered as Reported by: GAL FERRELL on 01/06/18 161 Mexiletine HCl (Mexiletine HCl) 150 Mg Cap, 150 MG PO TID, (Reported) Entered as Reported by: GAL FERRELL on 01/06/18 161 Multivitamin (Daily Multiple Vitamin) 1 Each Tablet, 1 TAB PO DAILY, (Reported) Entered as Reported by: GAL FERRELL on 01/06/18 162 [place]-3 Acid Ethyl Esters ([place]-3 Acid Ethyl Esters) 1 Gm Capsule, 2 GM PO DAILY, (Reported) Entered as Reported by: GAL FERRELL on 01/06/18 161 Review of Systems Review of Systems Constitutional: no symptoms reported EENTM: No Symptoms Reported Respiratory: No Symptoms Reported Cardiovascular: Chest Pain, Lightheadedness, Other (Low blood pressure) Gastrointestinal: No Symptoms Reported Genitourinary: No Symptoms Reported Musculoskeletal: no symptoms reported Skin: no symptoms reported Psychiatric/Neurological: No Symptoms Reported Endocrine: No Symptoms Reported Hematologic/Lymphatic: No Symptoms Reported Past Znnzjvr-Upihph-Ewnttj Hx Patient Social History Tobacco Use?: No Smoking Status: Former Smoker Substance use?: No Alcohol Use?: No Pt feels they are or have been: No Immunizations Up To Date Tetanus Booster (TDap): Unknown Seasonal Allergies Seasonal Allergies: Yes Past Medical History Surgery/Hospitalization HX: HTN, CAD, BACK PAIN, KIDNEY ISSUES Surgeries: Yes (LEFT MASTECTOMY, TISSUE HEART VALVE/CABG/THORACIC ANEURYSM REPAIR) Adenoidectomy, Appendectomy, Breast, Cardiac, CABG, Eye Surgery, Gallbladder, Hysterectomy, Oophorectomy, Tonsillectomy, Valve Replacement, Vascular Surgery Respiratory: No (scare on lungs) Currently Using CPAP: No Currently Using BIPAP: No Cardiac: Yes (THORACIC ANEURYSM REPAIRED, STILL WITH SMALL AAA) Aneurysm, Coronary Artery Disease, High Cholesterol, Hypertension, Valvular Heart Disease Neurological: No Reproductive Disorders: Yes Genitourinary: No Gastrointestinal: Yes Chronic Constipation, Polyps Musculoskeletal: Yes (Osteoarthritis) Arthritis, Chronic Back Pain Endocrine: No HEENT: Yes (bilateral cataracts removed) Cataract Loss of Vision: Denies Hearing Impairment: Bilateral Hearing Aide Cancer: Yes Breast, Uterine What Type of Treatment Did You: Surgical Intervention Psychosocial: Yes Anxiety, Depression Integumentary: No Blood Disorders: No Adverse Reaction/Blood Tranf: No Family Medical History Reviewed Nursing Family Hx Patient reports no known family medical history. No Pertinent Family Hx Physical Exam Vital Signs Vital Signs - First Documented 07/04/22 14:08 Temp 37.0 Pulse 60 Resp 22 B/P (MAP) 118/51 (73) Pulse Ox 96 Capillary Refill : Less Than 3 Seconds Height, Weight, BMI Height: 5'6.00" Weight: 217lbs. 3.0oz. 98.046286bc; 33.00 BMI Method:Stated General Appearance: No Apparent Distress, WD/WN HEENT: Normal ENT Inspection, Pharynx Normal Neck: Normal Inspection, Non Tender, Supple Respiratory: Chest Non Tender, Lungs Clear, Normal Breath Sounds, No Accessory Muscle Use, No Respiratory Distress Cardiovascular: Regular Rate, Rhythm, Normal Peripheral Pulses, Systolic Murmur (Systolic murmur heard best at the right sternal border) Gastrointestinal: Normal Bowel Sounds, No Organomegaly Extremity: Normal Capillary Refill, Non Tender, No Calf Tenderness Neurologic/Psychiatric: Alert, Oriented x3 Skin: Normal Color, Warm/Dry Progress/Results/Core Measures Results/Orders Lab Results Laboratory Tests Test 07/04/22 14:20 Range/Units White Blood Count 13.8 H 4.3-11.0 10^3/uL Red Blood Count 4.97 3.80-5.11 10^6/uL Hemoglobin 12.9 11.5-16.0 g/dL Hematocrit 41 35-52 % Mean Corpuscular Volume 83 80-99 fL Mean Corpuscular Hemoglobin 26 25-34 pg Mean Corpuscular Hemoglobin Concent 32 32-36 g/dL Red Cell Distribution Width 15.8 H 10.0-14.5 % Platelet Count 233 130-400 10^3/uL Mean Platelet Volume 11.0 9.0-12.2 fL Immature Granulocyte % (Auto) 1 % Neutrophils (%) (Auto) 82 H 42-75 % Lymphocytes (%) (Auto) 10 L 12-44 % Monocytes (%) (Auto) 7 0-12 % Eosinophils (%) (Auto) 0 0-10 % Basophils (%) (Auto) 0 0-10 % Neutrophils # (Auto) 11.3 H 1.8-7.8 10^3/uL Lymphocytes # (Auto) 1.4 1.0-4.0 10^3/uL Monocytes # (Auto) 1.0 0.0-1.0 10^3/uL Eosinophils # (Auto) 0.1 0.0-0.3 10^3/uL Basophils # (Auto) 0.1 0.0-0.1 10^3/uL Immature Granulocyte # (Auto) 0.1 0.0-0.1 10^3/uL Prothrombin Time 14.9 H 12.2-14.7 SEC INR Comment 1.1 0.8-1.4 Activated Partial Thromboplast Time 41 H 24-35 SEC Sodium Level 139 135-145 MMOL/L Potassium Level 3.7 3.6-5.0 MMOL/L Chloride Level 102 98-107 MMOL/L Carbon Dioxide Level 30 21-32 MMOL/L Anion Gap 7 5-14 MMOL/L Blood Urea Nitrogen 33 H 7-18 MG/DL Creatinine 1.32 H 0.60-1.30 MG/DL Estimat Glomerular Filtration Rate 40 BUN/Creatinine Ratio 25 Glucose Level 108 H 70-105 MG/DL Calcium Level 9.4 8.5-10.1 MG/DL Corrected Calcium 9.6 8.5-10.1 MG/DL Total Bilirubin 1.3 H 0.1-1.0 MG/DL Aspartate Amino Transf (AST/SGOT) 14 5-34 U/L Alanine Aminotransferase (ALT/SGPT) 9 0-55 U/L Alkaline Phosphatase 71 40-136 U/L Troponin I < 0.028 <0.028 NG/ML Total Protein 7.7 6.4-8.2 GM/DL Albumin 3.8 3.2-4.5 GM/DL My Orders Orders - DAMIEN GARCIA DO Ekg Tracing (07/04/22 14:07) Aspirin Chewable Tablet (Baby Aspirin Ch (07/04/22 14:30) Cbc With Automated Diff (07/04/22 14:20) Chest 1 View, Ap/Pa Only (07/04/22 14:20) Comprehensive Metabolic Panel (07/04/22 14:20) Protime With Inr (07/04/22 14:20) Partial Thromboplastin Time (07/04/22 14:20) Monitor-Rhythm Ecg Trace Only (07/04/22 14:20) Lipid Panel (07/05/22 06:00) Ed Iv/Invasive Line Start (07/04/22 14:20) Troponin I [place] (07/04/22 14:20) Ns Iv 500 Ml (Sodium Chloride 0.9%) (07/04/22 15:15) Medications Given in ED Current Medications Medications Dose Ordered Sig/Soheila Route Start Time Stop Time Status Last Admin Dose Admin Aspirin 324 mg ONCE ONCE PO 07/04/22 14:30 07/04/22 14:31 DC 07/04/22 14:27 324 MG Vital Signs/I&O 07/04/22 14:08 Temp 37.0 Pulse 60 Resp 22 B/P (MAP) 118/51 (73) Pulse Ox 96 Blood Pressure Mean: 73 Comment Sinus rhythm with a rate of 61 bpm. Normal intervals. Left axis deviation. No ST or T wave abnormalities. No ectopy. No STEMI Departure Communication (Admissions) 2450: I spoke with Dr Dey. He wishes the patient to stop taking losartan for now and to follow up in his clinic on Saturday. He states she does not have a heart cath scheduled on Saturday as he is out of town this weekend. I spoke with the patient about her continued low blood pressures and the high likelihood that there are from her losartan. She agrees as symptoms started immediately after doubling her dose. She is not having any further chest pains or other concerning symptoms. I clarified with her as Dr. Dey said he was out of town on Saturday. She actually has a follow-up at [facility] with Dr. Murillo on Saturday and has a stress test scheduled for that time. She will keep this appointment. For now she will stop taking her losartan unless her systolic blood pressures greater than 120. If her systolic blood pressure is 120 or greater she will take 25 mg of losartan rather than her current 50 mg of losartan. I did give her the option to stay here and wait for her blood pressures to rebound and she states she could go home safely as her daughter will be at home. Advise she needs to be careful going from lying to sitting or sitting to standing and she may become dizzy and/or pass out. She states understanding and still wishes to go home rather than wait in our bed and be observed. I believe this is likely safe as long as she has some supervision there and is aware of the risks and moves around slowly. There is no evidence for ACS. She is not anemic. Chest x-ray is negative. There is no indication of an infectious source of hypotension. Impression Primary Impression: Hypotension due to medication Disposition: HOME, SELF-CARE Condition: Stable Departure-Patient Inst. Referrals: KANWAL SILVESTRE APRN (PCP) Primary Care Physician PAULIE DEY MD (Family) Primary Care Physician Patient Instructions: Low Blood Pressure (DC) Add. Discharge Instructions: Your blood pressures are likely low because of your losartan as discussed. Stop taking your losartan unless you are systolic blood pressures greater than 120. If your systolic blood pressures greater than 120 and you may take 25 mg of losartan in the evening. Do not take 50 mg of losartan again. Do recommend you follow-up at [facility] on Saturday for your stress test as scheduled. You will need to be careful getting around more your blood pressures are low. As discussed you will especially need to be careful when going from lying to sitting or sitting to standing and need to have someone around to help in case you have tr ouble. You have opted to go home rather than being observed in the emergency department. Please return to the emergency department immediately for any severe concerns, specifically any recurrence of chest pain. All discharge instructions reviewed with patient and/or family. Voiced understanding. DAMIEN GARCIA DO Jul 04, 2022 14:24
[2022-07-04 14:29] LABS: BASOPHILS # (AUTO) 0.1 10^3/uL (0.0-0.1); BASOPHILS % (AUTO) 0 % (0-10); EOSINOPHILS # (AUTO) 0.1 10^3/uL (0.0-0.3); EOSINOPHILS % (AUTO) 0 % (0-10); HEMATOCRIT 41 % (35-52); HEMOGLOBIN 12.9 g/dL (11.5-16.0); LYMPHOCYTES # (AUTO) 1.4 10^3/uL (1.0-4.0); LYMPHOCYTES % (AUTO) 10 % (12-44); MEAN CORPUSCULAR HEMOGLOBIN 26 pg (25-34); MEAN CORPUSCULAR HGB CONC 32 g/dL (32-36); MEAN CORPUSCULAR VOLUME 83 fL (80-99); MONOCYTES % (AUTO) 7 % (0-12); NEUTROPHILS # (AUTO) 11.3 10^3/uL (1.8-7.8); NEUTROPHILS % (AUTO) 82 % (42-75); PLATELET COUNT 233 10^3/uL (130-400); WHITE BLOOD COUNT 13.8 10^3/uL (4.3-11.0)
[2022-07-04] MEDS ORDERED: ASPIRIN 81 MG CHEW (CHILDREN'S ASA) PO ONE (14:30)
--- NOTE | 2022-07-04 14:40 | Diagnostic Imaging Report ---
INDICATION: Chest pain. Frontal chest obtained at 2:21 p.m. and compared to 01/06/2018. FINDINGS: There is post-sternotomy change. The heart is mildly enlarged. The aorta is tortuous and/or ectatic. There is no focal infiltrate or pneumothorax or pleural fluid. IMPRESSION: Cardiomegaly with tortuous and/or ectatic aorta. No focal infiltrate or pleural fluid. Dictated by: Dictated on workstation # [id number]
[2022-07-04 14:41] LABS: INR 1.1 (0.8-1.4); PROTHROMBIN TIME PATIENT 14.9 SEC (12.2-14.7)
[2022-07-04 14:46] LABS: ALBUMIN 3.8 GM/DL (3.2-4.5); BILIRUBIN,TOTAL 1.3 MG/DL (0.1-1.0); CALCIUM 9.4 MG/DL (8.5-10.1); CREATININE SERUM 1.32 MG/DL (0.60-1.30); POTASSIUM 3.7 MMOL/L (3.6-5.0); TOTAL PROTEIN 7.7 GM/DL (6.4-8.2)
[2022-07-04] MEDS ORDERED: NS IV 500 ML 500 ML IV SCH (15:15)
[2022-07-04 16:16] VITALS: BP 99/42
== END 2022-07-04 16:16 | disposition home or self-care (01) ==
LOC: EDUNIT# 14:05 → ER 14:06
DX: I95.2 Hypotension due to drugs (principal); T46.5X5A Adverse effect of other antihypertensive drugs, initial encounter; I10 Essential (primary) hypertension; Z87.891 Personal history of nicotine dependence
CPT/HCPCS: 36415; 71045; 80053; 84484; 85025; 85610; 85730; 93005; 93041

== ENCOUNTER → 2022-07-05 | Outpatient (CLI) | payer MEDICARE, OTHER | PROVIDERS: ATTEND Internal Medicine Cardiovascular Disease | DX: I11.9 Hypertensive heart disease without heart failure (principal); I25.10 Atherosclerotic heart disease of native coronary artery without angina pectoris; I35.8 Other nonrheumatic aortic valve disorders | CPT/HCPCS: 93306 ==

== ENCOUNTER → 2022-07-23 | Outpatient (RCR) | payer MEDICARE, OTHER | END | disposition home or self-care (01) | LOC: CR3 05-28 07:08 | DX: Z29.8 Encounter for other specified prophylactic measures (principal) ==

== ENCOUNTER → 2022-08-06 | Outpatient (CLI) | payer MEDICARE, OTHER ==
[~2022-08-06] MED LIST changes: +REGADENOSON 0.4 MG/5 ML SYR (LEXISCAN) IV ONE
[2022-08-06] MEDS: CATHETER FLUSH 10 ML SYR IVP PRN ×2 (07:20→09:00)
[2022-08-06 09:02] VITALS: BP 143/47
--- NOTE | 2022-08-06 11:41 | Cardiology Stress Test Report ---
Stress Test Report Date of Procedure/Referring: Date of Procedure: Aug 06, 2022 PCP No,Local Physician Admitting Physician Admitting Physician: Attending Physician: Paulie Dey MD Indications: CAD Baseline Heart Rate: 61 Baseline Blood Pressure: Blood Pressure Systolic: 143 Blood Pressure Diastolic: 47 Baseline Vitals Vital Signs Date Time Temp Pulse Resp B/P (MAP) Pulse Ox O2 Delivery O2 Flow Rate FiO2 08/06/22 09:02 62 20 143/47 (79) 95 Baseline EKG: Baseline EKG: NSR Summary After explaining the procedure to the patient, she signed a consent and then brought to the stress nuclear laboratory. Patient received 0.4 mg Lexiscan for stress test, ECG, heart rate and blood pressure were monitored continuously. Resting and stress dose of radio tracer were injected, imaging was acquired and reviewed in short axis, horizontal long axis and vertical long axis views. TID: 1.21 SSS: 7 SDS: 1 EF: 78 Patient tolerated Lexiscan well No significant ischemia or infarction on SPECT images Diaphragmatic attenuation with fixed defect of the mid to apical inferior wall with no significant ischemia Normal left ventricular size, ejection fraction 78% PAULIE DEY MD Aug 06, 2022 11:41
== END ==
LOC: CARD 07:30
PROVIDERS: ATTEND Internal Medicine Cardiovascular Disease
DX: I25.10 Atherosclerotic heart disease of native coronary artery without angina pectoris (principal); I10 Essential (primary) hypertension
CPT/HCPCS: 78452; 93017; A9502

== ENCOUNTER → 2022-08-21 | Outpatient (CLI) | payer MEDICARE, OTHER ==
[~2022-08-21] MED LIST changes: -REGADENOSON 0.4 MG/5 ML SYR (LEXISCAN) IV ONE
--- NOTE | 2022-08-21 22:04 | Diagnostic Imaging Report ---
HISTORY: Right shoulder pain TECHNIQUE: 3 views of the right shoulder COMPARISON: None FINDINGS: No acute fracture or dislocation is seen in the right shoulder. Bone density appears diffusely low. There are moderate degenerative changes in the right acromioclavicular joint. There is mild subacromial spurring. No cortical erosions are seen. There is right convex curvature of the thoracic spine and degenerative change. Cervical spine fusion hardware is noted. There are post-CABG changes present. IMPRESSION: 1. Degenerative changes in the right shoulder with no acute osseous abnormality seen. Dictated by: Dictated on workstation # [id number]
--- NOTE | 2022-08-21 22:04 | Diagnostic Imaging Report ---
HISTORY: Back pain COMPARISON: 11/04/2015 TECHNIQUE: 3 views of the thoracic spine FINDINGS: There is moderate right convex curvature of the midthoracic spine. There appear to be bridging anterior osteophytes suggestive of diffuse idiopathic skeletal hyperostosis. Bone density appears diffusely low. No acute fracture is seen. Vertebral body heights generally appear preserved. The upper thoracic spine is obscured by overlapping structures. Sternotomy wires, post CABG changes and a valve prosthesis are noted. Cervical spine fusion hardware is seen. IMPRESSION: 1. Dextroscoliosis and degenerative change in the thoracic spine with no acute osseous abnormalities seen. If there is concern for acute fracture, consider cross-sectional imaging, preferably MRI. Dictated by: Dictated on workstation # [id number]
== END ==
LOC: RAD 12:30
PROVIDERS: ATTEND Family Medicine
DX: M19.011 Primary osteoarthritis, right shoulder (principal); M47.814 Spondylosis without myelopathy or radiculopathy, thoracic region; M41.84 Other forms of scoliosis, thoracic region
CPT/HCPCS: 72072; 73030

== ENCOUNTER 2022-09-14 08:31 | Outpatient (RCR) | payer MEDICARE, OTHER | END 2022-09-20 | disposition home or self-care (01) | LOC: CR3 08:31 | DX: Z29.8 Encounter for other specified prophylactic measures (principal) ==

== ENCOUNTER 2022-11-16 07:11 | Outpatient (RCR) | payer MEDICARE, OTHER | END 2022-11-20 | disposition home or self-care (01) | LOC: CR3 07:11 | DX: Z29.8 Encounter for other specified prophylactic measures (principal) ==

== ENCOUNTER → 2023-02-14 | Outpatient (CLI) | payer MEDICARE, OTHER | LOC: CARD 08:14 | PROVIDERS: ATTEND Internal Medicine Cardiovascular Disease | DX: I10 Essential (primary) hypertension (principal); I25.10 Atherosclerotic heart disease of native coronary artery without angina pectoris | CPT/HCPCS: 93306 ==

== ENCOUNTER → 2023-02-21 | Outpatient (RCR) | payer MEDICARE, OTHER | END | disposition home or self-care (01) | PROVIDERS: ATTEND Internal Medicine Cardiovascular Disease | DX: M62.81 Muscle weakness (generalized) (principal); I10 Essential (primary) hypertension; M81.0 Age-related osteoporosis without current pathological fracture ==

== ENCOUNTER 2023-03-21 08:33 | Outpatient (RCR) | payer MEDICARE, OTHER | END 2023-03-23 | disposition home or self-care (01) | PROVIDERS: ATTEND Internal Medicine Cardiovascular Disease | DX: M62.81 Muscle weakness (generalized) (principal) ==

== ENCOUNTER → 2023-04-23 | Outpatient (RCR) | payer MEDICARE, OTHER | END | disposition home or self-care (01) | PROVIDERS: ATTEND Internal Medicine Cardiovascular Disease | DX: M62.81 Muscle weakness (generalized) (principal); I10 Essential (primary) hypertension; M81.0 Age-related osteoporosis without current pathological fracture ==

== ENCOUNTER → 2023-05-23 | Outpatient (RCR) | payer MEDICARE, OTHER | END | disposition home or self-care (01) | PROVIDERS: ATTEND Internal Medicine Cardiovascular Disease | DX: M62.81 Muscle weakness (generalized) (principal); M81.0 Age-related osteoporosis without current pathological fracture; I11.9 Hypertensive heart disease without heart failure ==